=== PATIENT | female | born 1990 | race Caucasian/White ===

== ENCOUNTER 2021-07-13 11:32 | Outpatient (CLI) | payer OTHER, SELFPAY ==
[2021-07-13 19:46] LABS: Basophils Percent Auto 0.1 % (0.2-1.2); Eosinophils Absolute Auto 0.1 K/mm3 (0-0.3); Eosinophils Percent Auto 1.3 % (0-4.4); Hematocrit 36.2 % (37.0-47.0); Hemoglobin 11.6 g/dL (12.0-15.0); Immature Granulocyte Absolute 0.01 K/mm3 (0.00-0.031); Immature Granulocyte Percent A 0.1 % (0-0.5); Lymphocytes Absolute Auto 1.64 K/mm3 (0.9-3.2); Lymphocytes Percent Auto 23.6 % (18.3-44.2); Mean Corpuscular Hemoglobin 29.2 pg (26-34); Mean Corpuscular Volume 91.2 fl (80-100); Mean Platelet Volume 12.1 fl (7.4-10.4); Monocytes Absolute Auto 0.4 K/mm3 (0.1-0.6); Monocytes Percent Auto 5.9 % (2.6-8.5); Neutrophils Absolute Auto 4.8 K/mm3 (1.3-6.7); Platelet Count Result 188 k/mm3 (150-375); Red Blood Count 3.97 M/mm3 (4.2-5.4); Red Cell Distribution Width 13.3 % (11.5-14.5); White Blood Count 6.9 K/mm3 (4.5-10.0)
[2021-07-13 19:56] LABS: Glucose 1 Hour PP 50gm Dose 96 mg/dL
[2021-07-13 19:56] LABS: Add Urine Microscopic? NO; Appearance Urine Clear (Clear); Bilirubin Urine Negative (Negative); Blood Urine Negative (Negative); Color Urine Yellow (Yellow); Glucose Urine UA Negative (Negative); Ketones Urine Negative (Negative); Leukocyte Esterase Ur Negative LEU/UL (NEGATIVE); Nitrate Urine Negative (Negative); Protein Urine Negative (Negative); Specific Grav Ur 1.014 (1.001-1.035); Urobilinogen Urine Negative mg/dL (<2.0)
[2021-07-13 20:18] LABS: Vitamin D 25 Hydroxy 18.7 ng/mL
[2021-07-13 20:25] LABS: Thyroid Stimulating Hormone 0.984 uIU/mL (0.465-4.680)
[2021-07-13 20:32] LABS: Hepatitis B Surface Antigen Negative (Negative); Rubella IgG Antibody 13.1 IU/ML
[2021-07-13 20:43] LABS: HIV 1/2 Ab P24 Ag Result Negative (Negative); Hepatitis C Virus Antibody Negative (Negative)
[2021-07-14 15:09] LABS: Rapid Plasma Reagin Non-Reactive (NonReactive)
[2021-07-16 21:35] LABS: Hemoglobin 11.5 g/dL (11.7-15.5); MCH 29.6 pg (27.0-33.0); RDW 14.1 % (11.0-15.0); Red Blood Cell Count 3.89 Mill/uL (3.80-5.10)
== END 2021-07-13 11:33 | disposition home or self-care (01) ==
LOC: ANHBWCLAB 11:34
PROVIDERS: Visit Provider Obstetrics & Gynecology
DX: Z34.90 Encounter for supervision of normal pregnancy, unspecified, unspecified trimester (principal); E66.01 Morbid (severe) obesity due to excess calories; Z3A.00 Weeks of gestation of pregnancy not specified
CPT/HCPCS: 36415; 81003; 82306; 82947; 83021; 84443; 85025; 86592; 86703; 86762; 86787; 86803; 86850; 86900; 86901; 87086; 87088; 87340; G0432

== ENCOUNTER 2021-07-29 16:40 | Emergency (ER) | payer OTHER, SELFPAY ==
--- NOTE | 2021-07-29 16:52 | ED.URI ---
HPI - URI/Sore Throat General Stated Complaint: Ear Pain Time Seen by Provider: 07/29/21 16:52 Source: patient and RN notes reviewed History of Present Illness HPI Narrative: Patient is a 31-year-old female who presents the urgent care with complaints of left ear pain for the last 2 to 3 days. Patient states that she is taken Tylenol for the pain. Patient states that her main concern is getting tested for Covid today . Patient brought her entire family for Covid testing due to being at a recently. Denies of any fever, chills, nausea, vomiting. No other acute complaints. No acute distress noted. Patient aware of the plan of care. Some parts of this dictation were generated by voice recognition software and may contain typographical and/or grammatical inaccuracies. Related Data Home Medications Medication Instructions Recorded Confirmed docosahexaenoic acid 200 mg capsule mg PO 07/15/21 07/15/21 pyridoxine (vitamin B6) 25 mg 25 mg PO DAILY 07/15/21 07/15/21 tablet Allergies Allergy/AdvReac Type Severity Reaction Status Date / Time azithromycin Allergy Unknown RASH, Verified 07/29/21 17:27 DIARRHEA Penicillins Allergy Unknown RASH, Verified 07/29/21 17:27 DIARRHEA Review of Systems Review of Systems: CONSTITUTIONAL: Denies fever, chills, or sweats. EYES: Denies visual changes, redness, or discharge. ENT: Denies rhinorrhea, congestion. Reports a mild sore throat and left otalgia with use CARDIOVASCULAR: Denies chest pain, palpitations, or edema. RESPIRATORY: Denies cough or dyspnea. GASTROINTESTINAL: Denies abdominal pain, nausea, vomiting, or diarrhea. GENITOURINARY: Denies dysuria or hematuria. SKIN: Denies rash or itching. MUSCULOSKELETAL: Denies back pain, joint pain, or myalgia. NEUROLOGIC: Denies headache, numbness, or weakness. All other systems reviewed are negative, except as documented in HPI. [facility] Past Medical History Medical History Anxiety PCOS (polycystic ovarian syndrome) Surgical History Surgical History Previous section x2 Family History Family History (Reviewed 07/15/21 @ 12:28 by Junei Gutierrez [facility]) Mother Cancer Depression Anxiety Grandparent Cancer Diabetes mellitus Anxiety Depression Social History Social History (Reviewed 07/15/21 @ 12:28 by Junie Gutierrez [facility]) Smoking status: Never smoker Alcohol intake: never Substance use: never Comments At the time of my signature, I reviewed and agree with the nursing past medical, surgical, social, and family history. There is no relevant family history pertinent to the patient complaint. Exam Narrative: GENERAL: This is a well-nourished, well-developed patient, in no apparent distress. HEAD: normocephalic, atraumatic. EYES: PERRL. Sclera clear/white. Vision is grossly intact. EARS: External ears normal, mild edema and erythema with clear drainage noted to the left canal. Right auditory canal clear and without drainage, TMs normal without perforation. Hearing grossly intact. NOSE: External nose normal with no obvious nasal discharge, nares without redness, no rhinorrhea. THROAT: Mucous membranes moist, posterior pharynx clear. Mild postnasal drainage NECK: Neck supple CARDIOVASCULAR: Regular rate and rhythm without murmurs, gallops, or rubs. RESPIRATORY: Clear to auscultation. Breath sounds equal bilaterally. No wheezes, rales, or rhonchi. SKIN: warm, intact with no suspicious lesions or rash, good texture and turgor. NEURO: awake, alert, and oriented to person, place and time. There were no obvious focal neurologic abnormalities. EXTREMITIES: No clubbing, cyanosis, or edema. Course Vital Signs Vital signs: Vital Signs Temperature 98.6 F 07/29/21 17: Pulse Rate 79 07/29/21 17: Respiratory Rate 20 07/29/21 17:02 Blood Pressur
[2021-07-29 17:02] VITALS: BP 121/66; PULSE 79; RESP 20; TEMP 37; O2SAT 100
== END 2021-07-29 17:33 | disposition home or self-care (01) ==
PROVIDERS: Emergency Provider Nurse Practitioner Family; PCP Family Medicine
DX: H60.92 Unspecified otitis externa, left ear (principal); J02.9 Acute pharyngitis, unspecified; Z20.822 Contact with and (suspected) exposure to COVID-19; E28.2 Polycystic ovarian syndrome
CPT/HCPCS: 87081; 87880; 99213; G0463

== ENCOUNTER 2021-08-21 07:41 | Outpatient (CLI) | payer OTHER, SELFPAY ==
--- NOTE | ~2021-08-21 | US_ITS ---
EXAMINATION: US OB /maternal detail DATE: 08/21/2021 08:18 INDICATION: Second trimester anatomic survey TECHNIQUE: Real-time ultrasound of the pelvis was performed. COMPARISON: None. FINDINGS: The examination is limited by the patient's body habitus. There is a single living fetus in breech p resentation. The placenta is posterior. heart rate is 142 beats per minute (bpm). cardia c activity and movement are noted. The amniotic fluid index is subjectively normal. The heart is not well evaluated due to positioning and body habitus. The following anatom y was identified as normal: 3 vessel cord cord insertion kidneys urinary bladder stomach spine diaphragm ventricles cisterna magna cerebellum The following biometric data were obtained: Biparietal diameter (BPD): 4.1 cm; head circumference (HC): 15.9 cm; abdominal circumference (AC): 15 .7 cm; femur length (FL): 2.7 cm. The head circumference to abdominal circumference ratio is greater than two standard deviations below the mean. These measurements are otherwise concordant. Estimated weight is 303 g +/- 45 g, which correlates with the 48th percentile when 01/11/2022 is used as estimated date of delivery. As single measurements, these parameters are each equal to the following estimated gestational ages w ith ranges of +/- 2 standard deviations: BPD: 18 weeks 3 days +/- 1 weeks 5 days. HC: 18 weeks 5 days +/- 1 weeks 3 days. AC: 20 weeks 6 days +/- 2 weeks 0 days. FL: 18 weeks 4 days +/- 1 weeks 6 days. estimated gestational age based solely on measurements from this exam is 19 weeks 1 days +/- 1 weeks 2 days. IMPRESSION: 1. Single living fetus in breech presentation. 2. Estimated weight is 303 g +/- 45 g, which correlates with the 48th percentile when 01/11/2022 is used as estimated date of delivery. 3. Incomplete evaluation of the heart. Reviewed, dictated and finalized at location A. IMPRESSION: 1. Single living fetus in breech presentation. 2. Estimated weight is 303 g +/- 45 g, which correlates with the 48th per centile when 01/11/2022 is used as estimated date of delivery. 3. Incomplete evaluation of the heart.
== END 2021-08-21 07:42 | disposition home or self-care (01) ==
LOC: ANHIMG 07:47
PROVIDERS: PCP Family Medicine; Visit Provider Obstetrics & Gynecology
DX: Z36.0 Encounter for antenatal screening for chromosomal anomalies (principal); Z36.3 Encounter for antenatal screening for malformations; Z3A.19 19 weeks gestation of pregnancy
CPT/HCPCS: 76805

== ENCOUNTER 2021-09-24 09:10 | Outpatient (CLI) | payer OTHER, SELFPAY ==
--- NOTE | ~2021-09-24 | US_ITS ---
US OB limited 09/24/2021 09:53 Indication: Incomplete survey. Procedure: High-resolution Limited obstetrical ultrasound Comparison: 08/21/2021 Findings: There is a single living intrauterine in transverse presentation. heart rat e is 141 BPM. Placenta is posterior without previa. Amniotic fluid is subjectively normal. Limited ferrara rvey demonstrates a normal four-chamber heart. Impression: 1: Single living intrauterine in transverse presentation. 2: Normal four-chamber heart. Reviewed, dictated and finalized at location B. M OPERATOR Impression: 1: Single living intrauterine in transverse presentation. 2: Normal four-chamber heart.
== END 2021-09-24 09:11 | disposition home or self-care (01) ==
LOC: ANHIMG 09:12
PROVIDERS: PCP Family Medicine; Visit Provider Obstetrics & Gynecology
DX: Z36.2 Encounter for other antenatal screening follow-up (principal); Z3A.00 Weeks of gestation of pregnancy not specified
CPT/HCPCS: 76815

== ENCOUNTER 2021-10-20 13:35 | Emergency (ER) | payer OTHER, SELFPAY ==
[2021-10-20 14:20] VITALS: BP 149/59; PULSE 94; RESP 20; TEMP 36.6; O2SAT 99
--- NOTE | 2021-10-20 15:56 | ED.URI ---
HPI - URI/Sore Throat General Chief Complaint: Upper Respiratory Infection Stated Complaint: Cough/Sore Thorat/Ear Pain Time Seen by Provider: 10/20/21 15:56 Source: patient, RN notes reviewed and old records reviewed Mode of arrival: ambulatory Limitations: no limitations History of Present Illness HPI Narrative: 31-year-old female who presents to [facility] with complaints of 3 days of cough, sore throat, nasal congestion, and ear pain. Patient is 28 weeks , has not had any Covid or flu vaccine. Patient states that she had been on Amoxicillin about a month ago for ear infection which was prescribed by her OB doctor. Patient reports that she can take amoxicillin and Augmentin does not have type 2 IgE medication reaction to Penicillins. Patient states that she has been taking Benadryl and Flonase. Pertinent past history: tympanostony tubes Related Data Home Medications Medication Instructions Recorded Confirmed pyridoxine (vitamin B6) 25 mg 25 mg PO DAILY 07/15/21 10/20/21 tablet prenat.vits,roxi,fux-irun-xiwys 1 tablet PO DAILY 07/29/21 10/20/21 [ Vitamin] Allergies Allergy/AdvReac Type Severity Reaction Status Date / Time azithromycin Allergy Unknown RASH, Verified 10/20/21 15:48 DIARRHEA Penicillins Allergy Unknown RASH, Verified 10/20/21 15:48 DIARRHEA Review of Systems Review of Systems: CONSTITUTIONAL: Low grade fever, no chills, or sweats. EYES: Denies visual changes, redness, or discharge. ENT: positive for rhinorrhea, congestion, sore throat, or otalgia. CARDIOVASCULAR: Denies chest pain, palpitations, or edema. RESPIRATORY:Positive for cough denies dyspnea. GASTROINTESTINAL: Denies abdominal pain, nausea, vomiting, or diarrhea. GENITOURINARY: Denies dysuria or hematuria. SKIN: Denies rash or itching. MUSCULOSKELETAL: Denies back pain, joint pain, or myalgia. NEUROLOGIC: Positive for headache, no numbness, or weakness. PSYCHIATRIC: Positive for history of anxiety or depression. All systems reviewed & are unremarkable except as noted in HPI and below PMFSH Past Medical History Medical History (Updated 10/22/21 @ 09:02 by Francy Diaz NP) Anxiety Ear infection PCOS (polycystic ovarian syndrome) Surgical History Surgical History (Updated 10/22/21 @ 09:02 by Francy Diaz NP) History of placement of ear tubes Previous section x2 Family History Family History Mother Cancer Depression Anxiety Grandparent Cancer Diabetes mellitus Anxiety Depression Social History Social History Smoking status: Never smoker Alcohol intake: never Substance use: never Comments At time of signature, agree with nursing past medical, surgical, social and family history. There is no relevant family history pertinent to the presenting complaint Exam Narrative: GENERAL: Well-appearing, well-nourished,obese and is 28 weeks and in no acute distress. HEAD: Normocephalic, atraumatic. EYES: PERRLA and EOMI. ENT: Nares patent, clear rhinorrhea no epistaxis. Mucous membranes moist.TM's normal with ear tubes bilaterally, throat is red with no exudates or lesions, tonsila enlarged and red, some post nasal drainage present. NECK: Supple.lymphadenopathy CHEST: Clear to auscultation. No respiratory distress.cough with SAO2 99% on room air HEART: Regular rate and rhythm. No murmur heard. Normal peripheral pulses. ABDOMEN: Soft, nontender, nondistended, normal active bowel sounds. EXTREMITIES: Normal range of motion. No edema. SKIN: Warm, dry, no rash. NEURO: No focal deficits. Alert and oriented x3. Course Vital Signs Vital signs: Vital Signs Temperature 36.6 C 10/20/21 14:20 Pulse Rate 94 10/20/21 14:20 Respiratory Rate 20 10/20/21 14:20 Blood Pressure 149/59 H 10/20/21 14:20 Pulse Oximetry 99 10/20/21 14:20 Tempera
== END 2021-10-20 16:18 | disposition home or self-care (01) ==
PROVIDERS: Emergency Provider Registered Nurse; PCP Family Medicine
DX: J03.90 Acute tonsillitis, unspecified (principal); Z20.822 Contact with and (suspected) exposure to COVID-19; E28.2 Polycystic ovarian syndrome; F41.9 Anxiety disorder, unspecified
CPT/HCPCS: 87426; 87804; 99213; C9803; G0463

== ENCOUNTER 2021-11-18 16:56 | Outpatient (CLI) | payer OTHER, SELFPAY ==
[2021-11-18 17:20] VITALS: BP 119/77; PULSE 83
[2021-11-18 17:32] VITALS: BP 116/52; PULSE 89
[2021-11-18 17:48] VITALS: BP 116/52; PULSE 84
== END 2021-11-18 17:48 ==
LOC: ANHOBOP 11-19 12:10
PROVIDERS: PCP Family Medicine; Visit Provider Obstetrics & Gynecology
DX: O26.899 Other specified pregnancy related conditions, unspecified trimester (principal); M79.89 Other specified soft tissue disorders; R51.9 Headache, unspecified; Z3A.00 Weeks of gestation of pregnancy not specified
CPT/HCPCS: 59025

== ENCOUNTER 2022-01-04 06:30 | Inpatient (IN) | payer OTHER, SELFPAY ==
--- NOTE | 2021-12-31 16:09 | PM.IMHP ---
H&P: HPI History of Present Illness Date/Time: 12/31/21 16:09 at 39+0 with history of C section, coming for repeat C section and tubal ligation. Feeling normal movement. No leaking fluid, vaginal bleeding. Occasional contractions Chief Complaint: repeat C section, desires sterilization Review of Systems Review of Systems: All systems reviewed & are unremarkable except as noted in HPI and below PMFSH Past Medical History Medical History Anxiety Ear infection PCOS (polycystic ovarian syndrome) Surgical History Surgical History History of placement of ear tubes Previous section x2 Family History Family History Mother Anxiety Depression Cancer Grandparent Diabetes mellitus Anxiety Depression Cancer Social History Social History Smoking status: Never smoker Alcohol intake: never Substance use: never Spiritual care concerns: No Meds Home Medications and Allergies Home Medications Medication Instructions Recorded Confirmed Type prenat.vits,roxi,wve-nljy-xjwlb 1 tablet PO DAILY 07/29/21 12/30/21 History [ Vitamin] famotidine 20 mg tablet 20 mg PO Q12H #60 tablet 11/23/21 12/30/21 Rx escitalopram oxalate [Lexapro] 20 mg PO HS 12/26/21 12/30/21 History Allergies Allergy/AdvReac Type Severity Reaction Status Date / Time azithromycin Allergy Unknown RASH, Verified 12/30/21 12:10 DIARRHEA Penicillins Allergy Unknown RASH, Verified 12/30/21 12:10 DIARRHEA Exam Const: General: healthy appearing, no acute distress, alert and awake Resp: Auscultation: clear to auscultation bilaterally Cardio: Rate: regular rate Rhythm: regular rhythm GI: Inspection: non-distended GI Palp: Yes Soft to palpation and No Tenderness to palpation present (GI) Extrem: General: no calf tenderness Right lower extremity: edema Left lower extremity: edema Psych: Mental Status: mental status grossly normal Assessment and Plan Assessment and plan (1) Previous section: Code(s): Z98.891 - History of uterine scar from previous surgery Status: Acute Assessment and Plan: She signed consent after risks, benefits, complications, and alternatives discussed for repeat with bilateral tubal ligation. She signed IDND BTL consent 10/06/2021. She expressed understanding and agrees to proceed (2) Encounter for sterilization: Code(s): Z30.2 - Encounter for sterilization Status: Acute
[2022-01-04] VITALS (56 sets, daily range): BP systolic 60–154; BP diastolic 35–138; PULSE 63–109; RESP 15–20; TEMP 36.4–37; O2SAT 99–100; BMI 59.4
--- NOTE | 2022-01-04 06:58 | LDADM ---
This patient, Cara Rosa, was admitted to Labor/Delivery/Recovery 119 on 01/04/22 at 06:30. Plans for labor, pain management and were discussed with patient. Patient/family oriented to hospital policies and general routines including ID bracelet, bed and alarms, visiting hours, pain management, procedures, bathroom and other care routines, personal items, smoking policy, room service/diet and guest tray routines, security routines, and visiting hours. Patient/Family are encouraged to report perceived risks to care and to ask questions if they do not understand what they are told or what they should do. See OBIX for further documentation.
[2022-01-04] MEDS: LACTATED RINGERS 1,000 ML 125 ML IV CONT ×3 (07:19→11:39)
[2022-01-04 07:33] LABS: Basophils Percent Auto 0.2 % (0.2-1.2); Eosinophils Absolute Auto 0.1 K/mm3 (0-0.3); Eosinophils Percent Auto 0.6 % (0-4.4); Hematocrit 32.9 % (37.0-47.0); Hemoglobin 10.5 g/dL (12.0-15.0); Immature Granulocyte Absolute 0.06 K/mm3 (0.00-0.031); Immature Granulocyte Percent A 0.6 % (0-0.5); Lymphocytes Absolute Auto 2.16 K/mm3 (0.9-3.2); Mean Corpuscular HGB Conc 31.9 g/dl (32-36); Mean Corpuscular Hemoglobin 26.3 pg (26-34); Mean Corpuscular Volume 82.5 fl (80-100); Mean Platelet Volume 11.5 fl (7.4-10.4); Monocytes Absolute Auto 0.8 K/mm3 (0.1-0.6); Monocytes Percent Auto 7.7 % (2.6-8.5); Neutrophils Absolute Auto 7.2 K/mm3 (1.3-6.7); Neutrophils Percent Auto 69.9 % (45.5-73.1); Platelet Count Result 221 k/mm3 (150-375); Red Blood Count 3.99 M/mm3 (4.2-5.4); Red Cell Distribution Width 14.7 % (11.5-14.5); White Blood Count 10.3 K/mm3 (4.5-10.0)
--- NOTE | 2022-01-04 08:28 | WPDHPUPDATE1 ---
History and Physical Update Update Date/Time: 01/04/22 08:28 History and Physical has been reviewed, including an updated exam of the patient. There are NO changes in the patient's condition. Risks, benefits, and alternatives have been discussed and questions answered. Patient agrees to proceed with procedure.
--- NOTE | 2022-01-04 08:58 | WPDANESEPPF ---
Anes - Initial Pre Proc Eval Procedure: Operation Date: 01/04/22 09:00 Proposed Procedures p Repeat Section with Bilateral Tubal Ligation - Armida Harris MD Date/Time: 01/04/22 08:58 Surgeon: Armida Harris MD Pre Op Diagnosis: C/Section Patient Data Age: 31 Gender: F Height: 1.63 m Weight: 157 kg Last Vital Signs Pulse 98 01/04/22 07:01 BP 113/49 L 01/04/22 07:01 Allergies Allergy/AdvReac Type Severity Reaction Status Date / Time azithromycin Allergy Unknown RASH, Verified 12/30/21 12:10 DIARRHEA Penicillins Allergy Unknown RASH, Verified 12/30/21 12:10 DIARRHEA Home Medications Medication Instructions Recorded Confirmed Type prenat.vits,roxi,fkt-pmqb-rlxoa 1 tablet PO DAILY 07/29/21 01/04/22 History [ Vitamin] famotidine 20 mg tablet 20 mg PO Q12H #60 tablet 11/23/21 01/04/22 Rx escitalopram oxalate [Lexapro] 20 mg PO HS 12/26/21 01/04/22 History cefdinir 300 mg PO BID 01/04/22 01/04/22 History Laboratory Tests 01/04/22 01/04/22 06:53 06:53 WBC 10.3 K/mm3 H K/mm3 (4.5-10.0) RBC 3.99 M/mm3 L M/mm3 (4.2-5.4) Hgb 10.5 g/dL L g/dL (12.0-15.0) Hct 32.9 % L % (37.0-47.0) MCV 82.5 fl fl (80-100) MCH 26.3 pg pg (26-34) MCHC 31.9 g/dl L g/dl (32-36) RDW 14.7 % H % (11.5-14.5) Plt Count 221 k/mm3 k/mm3 (150-375) MPV 11.5 fl H fl (7.4-10.4) Immature Gran % (Auto) 0.6 % H % (0-0.5) Neut % (Auto) 69.9 % % (45.5-73.1) Lymph % (Auto) 21.0 % % (18.3-44.2) [place] % (Auto) 7.7 % % (2.6-8.5) Eos % (Auto) 0.6 % % (0-4.4) Baso % (Auto) 0.2 % % (0.2-1.2) Lymph # (Auto) 2.16 K/mm3 K/mm3 (0.9-3.2) [place] # (Auto) 0.8 K/mm3 H K/mm3 (0.1-0.6) Eos # (Auto) 0.1 K/mm3 K/mm3 (0-0.3) Baso # (Auto) 0.0 K/mm3 K/mm3 (0.0-0.1) Abs Immat Gran (auto) 0.06 K/mm3 H K/mm3 (0.00-0.031) Absolute Neuts (auto) 7.2 K/mm3 H K/mm3 (1.3-6.7) Absolute Nucleated RBC 0.0 K/mm3 K/mm3 (0.0-0.012) Nucleated RBC % 0.0 % % (0.0-0.2) RPR Pending Patient hx anesthesia problems: none Family hx anesthesia problems: none Results Review: All pre-operative results and documents have been reviewed as part of the pre-operative evaluation. [facility] Past Medical History Medical History (Updated 01/04/22 @ 08:58 by Jose Encinas MD) Anxiety Ear infection Morbid obesity PCOS (polycystic ovarian syndrome) Surgical History Surgical History History of placement of ear tubes Previous section x2 Family History Family History Mother Anxiety Depression Cancer Grandparent Diabetes mellitus Anxiety Depression Cancer Social History Social History Smoking status: Never smoker Alcohol intake: never Substance use: never Spiritual care concerns: No Anes - Eval Final PreProcedure Day of Procedure 01/04/22 08:58 Patient weight: super morbidly obese Heart: regular rate and rhythm Lungs: clear to auscultation Airway: Mallampati scale class II Neurological: alert and oriented Last oral intake: >/= 8 hours ASA classification: III Emergent: no Anesthetic plan: proceed Anesthesia type and monitoring: regional spinal and standard monitoring Results Review: All pre-operative results and documents have been reviewed as part of the pre-operative evaluation. Informed Consent: The patient's anesthetic plan and its attendant risks and benefits were discussed with the patient/family/POA. Questions were solicited and answers provided to the satisfaction of the patient/family/POA.
--- NOTE | 2022-01-04 09:03 | W.PM.PROC2 ---
Procedure Note - Detailed Date of Procedure 01/04/22 Pre-op Diagnosis Prior C/Section X 2, desires sterilization Post-op Diagnosis Same Procedure Performed Repeat LTCS + BTL Surgeon Armida Harris MD Anesthesia Spinal Indications 39 weeks gestation, prior C section X 2 Findings Male , cephalic; 10# 4oz; Apgars 8/8; normal uterus, tubes, and ovaries Description of Procedure She was taken to the operating room where spinal anesthesia was obtained and found to be adequate. She was prepared and draped in the normal sterile fashion in the dorsal lip supine position with a leftward tilt. A Pfannenstiel skin incision was made over her prior incision with the scalpel and extended to the underlying layer of fascia with the scalpel. The fascia was incised in the midline with a scalpel and extended laterally with the Vaz scissors. The underlying rectus muscles were dissected off bluntly and sharply. The rectus muscles were in the midline. The peritoneum was entered sharply and extended inferiorly and superiorly with good visualization of the bladder. The bladder blade was inserted. The vesicouterine peritoneum was tented up and entered sharp with Metzenbaum scissors and extended laterally. The bladder flap was created sharply. The bladder blade was reinserted. The lower uterine segment was incised in a transverse fashion with the scalpel. The incision was digitally stretched in a cephalocaudal direction. Due to the thickness of the lower uterine segment, the incision was then extended further using the bandage scissors. The membranes were ruptured with clear fluid noted. The 's head was delivered using help of the kiwi vacuum. One application and 1 pull was made to deliver the head. There was a loose nuchal cord that was reduced easily. The shoulders and body were delivered easily. The cord was clamped x2 and cut. The was passed to the awaiting nurse. Cord gas and cord blood was obtained. The placenta was manually extracted. The uterus was exteriorized and cleared of all clots and debris. The uterine incision was closed using 0 Vicryl in a running locked fashion 2 layers were placed due to the thickness of the uterus. Attention was then turned to the right fallopian tube. A defect was made in the meso salpinx in the mid isthmic portion. Two free ties of 0 plain gut were placed, and the intervening segment of tube was excised using the Metzenbaum scissors. Excellent hemostasis was visualized. The same procedure was performed on the left fallopian tube. Attention was then turned back to the uterine incision. There were couple bleeding points, which were easily controlled using 0 Vicryl [id number] sutures. The uterus was returned to the abdomen. The gutters were cleared of all clots and debris. The uterine incision was reinspected and found to be hemostatic. The rectus muscles were inspected. Any bleeding points were cauterized. The fascia was then closed using 0 Vicryl in a running fashion. The subcutaneous tissue was irrigated. Any bleeding points were cauterized. The skin was closed using Insorb absorbable martha. She tolerated the procedure well. Sponge, lap, needle, and instrument counts were correct x2. She was taken to the recovery area in stable condition. Estimated Blood Loss 385 Drains Yes (Meyer) Packing No Pathology None sent Complications No immediate complications Condition Stable Disposition Floor
[2022-01-04] MEDS: OXYTOCIN 30 UNITS/NS 500 ML 30 UNITS/500 ML BAG 125 UNITS IV CONT (11:37)
[2022-01-04] MEDS: fentaNYL CITRATE INJ (*CRX) 100 MCG/2 ML VIAL 25 MCG IV PUSH (11:51)
--- NOTE | 2022-01-04 13:53 | OBPPTRN ---
1320 Patient transferred to post room #285 via stretcher. Support person present. Oriented to unit, room, information board, rooming in, admission packet and security measures. Patient verbalizes understanding.
[2022-01-04] MEDS: diphenhydrAMINE HCl INJ 50 MG/ML VIAL 25 MG IV PUSH (13:59)
[2022-01-04] MEDS: CEFDINIR 300 MG CAPSULE PO ×2 (14:15→20:19)
[2022-01-04] MEDS: DEXTROSE 5%/0.45% SOD CHL 1,000 ML 125 ML IV CONT (16:47)
[2022-01-04] MEDS: DOCUSATE SODIUM 100 MG CAPSULE PO (18:49)
[2022-01-04] MEDS: POLYSACCHARIDE IRON COMPLEX 150 MG CAPSULE PO (18:49)
[2022-01-04] MEDS: HYDROcodone/acetaminophen (*CRX) 10-325 MG TABLET 1 TAB PO (18:49)
[2022-01-04] MEDS: IBUPROFEN 600 MG TABLET PO (18:50)
[2022-01-04] MEDS: ESCITALOPRAM OXALATE 10 MG TABLET 20 MG PO (20:19)
[2022-01-04] MEDS: FAMOTIDINE 20 MG TABLET PO (20:19)
[2022-01-05] MEDS: IBUPROFEN 600 MG TABLET PO ×3 (01:24→16:33)
[2022-01-05] MEDS: HYDROcodone/acetaminophen (*CRX) 10-325 MG TABLET 1 TAB PO ×4 (01:24→23:01)
[2022-01-05 04:45] VITALS: BP 120/77; PULSE 69; RESP 18; TEMP 36.8
[2022-01-05 05:23] LABS: Basophils Percent Auto 0.2 % (0.2-1.2); Eosinophils Absolute Auto 0.1 K/mm3 (0-0.3); Eosinophils Percent Auto 1.4 % (0-4.4); Hematocrit 32.5 % (37.0-47.0); Hemoglobin 10.1 g/dL (12.0-15.0); Immature Granulocyte Absolute 0.02 K/mm3 (0.00-0.031); Immature Granulocyte Percent A 0.2 % (0-0.5); Lymphocytes Absolute Auto 2.02 K/mm3 (0.9-3.2); Lymphocytes Percent Auto 20.3 % (18.3-44.2); Mean Corpuscular HGB Conc 31.1 g/dl (32-36); Mean Corpuscular Hemoglobin 27.1 pg (26-34); Mean Corpuscular Volume 87.1 fl (80-100); Mean Platelet Volume 10.8 fl (7.4-10.4); Monocytes Absolute Auto 0.8 K/mm3 (0.1-0.6); Monocytes Percent Auto 7.9 % (2.6-8.5); Platelet Count Result 183 k/mm3 (150-375); Red Blood Count 3.73 M/mm3 (4.2-5.4); Red Cell Distribution Width 14.7 % (11.5-14.5); White Blood Count 9.9 K/mm3 (4.5-10.0)
[2022-01-05] MEDS: NALBUPHINE HCL INJ 10 MG/ML AMPUL 2 MG IV PUSH (05:56)
--- NOTE | 2022-01-05 08:09 | P.PNOB_ITS ---
OB - PN: Subj Subjective Date/time seen: 01/05/22 08:09 Patient comments: no complaints, pain well controlled, incisional pain, tolerating diet, flatus present and other (Lochia similar to menses) baby status: doing well OB - PN: Obj Data Labs CBC & Chem 7: 01/05/22 05:14 Labs: Laboratory Results - last 24 hr 01/04/22 01/05/22 06:53 05:14 WBC 9.9 RBC 3.73 L Hgb 10.1 L Hct 32.5 L MCV 87.1 D MCH 27.1 MCHC 31.1 L RDW 14.7 H Plt Count 183 MPV 10.8 H Immature Gran % (Auto) 0.2 Neut % (Auto) 70.0 Lymph % (Auto) 20.3 [place] % (Auto) 7.9 Eos % (Auto) 1.4 Baso % (Auto) 0.2 Lymph # (Auto) 2.02 [place] # (Auto) 0.8 H Eos # (Auto) 0.1 Baso # (Auto) 0.0 Abs Immat Gran (auto) 0.02 Absolute Neuts (auto) 7.0 H Absolute Nucleated RBC 0.0 Nucleated RBC % 0.0 Blood Type A Positive Antibody Screen Negative OB - PN A/P Plan day: 1 (s/p C section, doing well) Plan: routine care Comments: May leave on pass today to see her baby who was transferred Time Spent With Patient Time: Total time spent is greater than 50% in coordination of care (as documented) at patient's floor/unit and/or counseling patient: Time with patient: less than 15 minutes Exam Const: General: no acute distress Resp: Auscultation: clear to auscultation bilaterally Cardio: Rate: regular rate Rhythm: regular rhythm GI: Inspection: non-distended, incision (Intact without erythema, drainage, or induration) and other (Fundus firm and nontender at umbilicus) GI Palp: Yes abdominal tenderness (appropriate ) and Yes Soft to palpation Extrem: General: no edema
[2022-01-05 08:15] VITALS: BP 126/49; PULSE 86; RESP 18; TEMP 36.7; O2SAT 99
[2022-01-05 08:52] LABS: Rapid Plasma Reagin Non-Reactive (NonReactive)
[2022-01-05] MEDS: DOCUSATE SODIUM 100 MG CAPSULE PO ×2 (09:15→16:35)
[2022-01-05] MEDS: FAMOTIDINE 20 MG TABLET PO ×2 (09:15→19:31)
[2022-01-05] MEDS: CEFDINIR 300 MG CAPSULE PO ×2 (09:16→19:31)
--- NOTE | 2022-01-05 10:54 | WPDANLDPN2 ---
Anes-Prog Note L&D Date/Time: 01/05/22 10:54 Comfortable throughout: section Neuraxial method: spinal Epidural/Spinal procedure site: clean & non-tender Neuro status: Neuro function grossly intact. Cardiovascular status: normal Respiratory status: normal Airway patency: baseline Mental status: baseline Post-Op hydration status: normal Vital Signs: Last Vital Signs Temp 36.7 C 01/05/22 08:15 Pulse 86 01/05/22 08:15 Resp 18 01/05/22 08:15 BP 126/49 L 01/05/22 08:15 Pulse Ox 99 01/05/22 08:15 Pain score (VAS): 2/10 I/O: Intake & Output 01/04/22 01/05/22 01/05/22 23:59 07:59 15:59 Intake Total 1090 750 Output Total 1300 1500 350 Balance -210 -750 -350 Post-procedural complaints: none Patient feedback: Patient satisfied with anesthetic care.
--- NOTE | 2022-01-05 10:54 | WPDANLDNPN2 ---
Anes-Prog Note L&D-Neuraxial Date/Time: 01/05/22 10:54 Neuraxial medications: intrathecal PF morphine Opiod-related complaints: none Patient feedback: Patient satisfied with post-operative pain management.
[2022-01-05 16:26] VITALS: BP 123/72; PULSE 96; RESP 18; TEMP 36.3; O2SAT 100
[2022-01-05 19:20] VITALS: BP 125/78; PULSE 90; RESP 18; TEMP 37
[2022-01-05] MEDS: ESCITALOPRAM OXALATE 10 MG TABLET 20 MG PO (19:31)
--- NOTE | 2022-01-05 19:44 | PC.NURSE ---
0930 left to go on 4-6 hour pass to [facility] to visit . [address].
--- NOTE | 2022-01-05 19:45 | PC.NURSE ---
1600 returned from going on the pass.
[2022-01-06] MEDS: IBUPROFEN 600 MG TABLET PO ×2 (04:46→11:34)
[2022-01-06] MEDS: HYDROcodone/acetaminophen (*CRX) 10-325 MG TABLET 1 TAB PO (04:47)
[2022-01-06 08:00] VITALS: PULSE 96; RESP 18; O2SAT 100
--- NOTE | 2022-01-06 08:25 | PM.OBPNVD ---
OB - PN: Subj Subjective Date/time seen: 01/06/22 08:25 Patient comments: no complaints, pain well controlled, tolerating diet, flatus present and other (Ambulating and voiding without problems. Lochia similar to menses) baby status: doing well OB - PN: Obj Data Labs CBC & Chem 7: 01/05/22 05:14 Labs: Laboratory Results - last 24 hr 01/04/22 06:53 RPR Non-reactive OB - PN A/P Plan day: 2 (s/p C section, doing well) Plan: routine care and discharge home (Follow up in 1 week) Time Spent With Patient Time: Total time spent is greater than 50% in coordination of care (as documented) at patient's floor/unit and/or counseling patient: Time with patient: less than 15 minutes Exam Const: General: no acute distress Resp: Auscultation: clear to auscultation bilaterally Cardio: Rate: regular rate Rhythm: regular rhythm GI: Inspection: non-distended, incision (Intact without erythema, drainage, or induration) and other (Fundus firm and nontender below umbilicus) GI Palp: Yes abdominal tenderness (appropriate) and Yes Soft to palpation Extrem: General: no edema
--- NOTE | 2022-01-06 08:25 | PM.OBDSVD ---
DS: Admitting Diagnosis Discharge Date 01/06/2022 Admitting Diagnosis Prior C/S X 2, desires sterilization DS: Discharge Diagnosis Discharge Diagnosis (1) Previous section: Code(s): Z98.891 - History of uterine scar from previous surgery Status: Acute (2) Encounter for sterilization: Code(s): Z30.2 - Encounter for sterilization Status: Acute OB - DS: Summary OB Procedures : None OB Procedures Intrapartum: low cervical, transverse and Tubal ligation OB Procedures: : None Peripartum Data Delivery Method: Section Procedures: Procedures Operation Date: 01/04/22 09:00 Actual Procedure Side Surgeon p Repeat Section with Bilateral Tubal Ligation Armida Harris MD complications: none Status at Discharge Functional status at discharge: independent ambulation Overall status at discharge: patient is progressing back to baseline Time Spent with Patient Time attestation: Total time spent providing and/or coordinating discharge services: Time spent: Less than 30 minutes DS: Data Data Completed and Pending Completed studies during hospitalization: Pending at discharge 01/04/22 10:16 Surgical [PTH] Routine Labs on day of discharge: Labs from last 24 hours 01/04/22 06:53 RPR Non-reactive Discharge Plan Discharge Attending physician on discharge: Armida Harris Discharging Clinician: Armida Harris Patient Disposition: Home, Self-Care Activity: may shower and pelvic rest Diet: as tolerated Wound Care Instructions: incision open to air Patient Instructions: Antibiotic Form Stand Alone Forms: General Discharge Information Follow-up/Referrals: Armida Harris MD [Physician] - 1 Week Discharge Medications: New hydrocodone-acetaminophen 5-325 mg Tablet 1 tablet PO Q4H PRN (Reason: Moderate Pain (4-6)) Qty: 20 RF: 0 ibuprofen 600 mg Tablet 600 mg PO Q6H PRN (Reason: Cramping) Qty: 60 RF: 0 Continued Vitamin Tablet 1 tablet PO DAILY RF: 0 escitalopram oxalate [Lexapro] 20 mg tablet 20 mg PO HS RF: 0 cefdinir 300 mg capsule 300 mg PO BID RF: 0 famotidine 20 mg tablet 20 mg PO Q12H Qty: 60 RF: 2 Date of admission: 01/04/22 06:30 Primary Care Provider: Hill,Horacio B. Admitting Provider: Armida Harris Attending physician on admission: Armida Harris Condition: Stable
[2022-01-06 08:55] VITALS: BP 149/87; PULSE 96; RESP 18; TEMP 37.1; O2SAT 100
[2022-01-06] MEDS: FAMOTIDINE 20 MG TABLET PO (08:56)
[2022-01-06] MEDS: CEFDINIR 300 MG CAPSULE PO (08:56)
[2022-01-06] MEDS: DOCUSATE SODIUM 100 MG CAPSULE PO (08:56)
== END 2022-01-06 11:40 | disposition home or self-care (01) | DRG 540 ==
LOC: ANHLDR 06:33 → ANHOB2 13:43
PROVIDERS: Admitting Provider Obstetrics & Gynecology; PCP Family Medicine; Visit Provider Obstetrics & Gynecology
PROC: 10D00Z1 Extraction of Products of Conception, Low, Open Approach (ICD-10-PCS; CPT 59514; principal; 2022-01-04 09:00)
DX: O34.211 Maternal care for low transverse scar from previous cesarean delivery (principal); Z37.0 Single live birth; Z3A.39 39 weeks gestation of pregnancy; O99.824 Streptococcus B carrier state complicating childbirth; Z30.2 Encounter for sterilization
CPT/HCPCS: 36415; 85025; 86592; 86850; 86900; 86901; 88302; A9270; J0131; J1200; J2274; J2300; J2370; J2405; J2590; J3010; J3370; J7120

== ENCOUNTER 2022-08-13 12:22 | Emergency (ER) | payer OTHER, SELFPAY ==
[2022-08-13 12:35] VITALS: BP 116/81; PULSE 74; RESP 18; TEMP 37.5; O2SAT 99
[2022-08-13 12:43] VITALS: BP 116/81; PULSE 74; RESP 18; TEMP 37.5; O2SAT 99
--- NOTE | 2022-08-13 12:54 | ED.EAR ---
HPI - Ear Problem General Chief complaint: Ear Stated complaint: ears Time Seen by Provider: 08/13/22 12:50 Source: patient, RN notes reviewed and old records reviewed Mode of arrival: ambulatory Limitations: no limitations History of Present Illness HPI Narrative: 32-year-old female who presents to [facility] care with complaints of bilateral ear pain with left ear greater than right. Patient does have bilateral ear tubes in place with long history of ear problems. Patient states pain to left ear and also decreased hearing for the past 3 days with some bloody drainage from her left ear reported. MD Complaint: ear pain, ear discharge and decreased hearing Location: bilateral (left greater than right) Duration: constant Associated symptoms ear: decreased hearing Related Data Home Medications Medication Instructions Recorded Confirmed escitalopram oxalate 20 mg tablet 20 mg PO HS 12/26/21 08/13/22 (Lexapro) bupropion HCl 150 mg 24 hr tablet, 150 mg PO DAILY 08/13/22 08/13/22 extended release topiramate 100 mg tablet 100 mg DAILY 08/13/22 08/13/22 Allergies Allergy/AdvReac Type Severity Reaction Status Date / Time azithromycin Allergy Unknown RASH, Verified 08/13/22 12:41 DIARRHEA Penicillins Allergy Unknown RASH, Verified 08/13/22 12:41 DIARRHEA Review of Systems Review of Systems: CONSTITUTIONAL:Reports malaise, chills, sweats, or fever. EYES: Denies visual changes, redness, or discharge. ENT: Reports rhinorrhea, congestion, sinus pain, bilateral otalgia no sore throat. CARDIOVASCULAR: Denies chest pain, palpitations, or edema. RESPIRATORY: no cough.? Denies dyspnea. GASTROINTESTINAL: Denies abdominal pain, nausea, vomiting, diarrhea SKIN: Denies rash or itching. MUSCULOSKELETAL: Denies myalgia. NEUROLOGIC: Denies headache. All systems reviewed & are unremarkable except as noted in HPI and below PMFSH Past Medical History Medical History Anxiety Ear infection Morbid obesity PCOS (polycystic ovarian syndrome) Surgical History Surgical History History of placement of ear tubes Previous section x2 Family History Family History Mother Anxiety Depression Cancer Grandparent Diabetes mellitus Anxiety Depression Cancer Social History Social History Smoking status: Never smoker Alcohol intake: never Substance use: never Spiritual care concerns: No Comments At time of signature, agree with nursing past medical, surgical, social and family history. There is no relevant family history pertinent to the presenting complaint Exam Narrative: GENERAL: Well-appearing, well-nourished, obesity and in no acute distress. HEAD: Normocephalic EYES: PERRLA, conjunctivae clear ENT: Nares clear, turbinates edematous and erythematous, clear discharge. Mucous membranes moist.Right TM pearly guaman with dull light reflex ear tub intact no drainage, Left ear with redness TM with tube in place some old blood noted in ear canal no tragal tenderness. Oropharynx erythematous without lesions. Tonsils not enlarged and without exudate, no drooling, no hoarseness, no trismus, uvula midline. NECK: Supple. No lymphadenopathy CHEST: Clear to auscultation, breath sounds equal. No wheezing, rhonchi, rales, or stridor. No respiratory distress, speaks in full sentences. HEART: Regular rate and rhythm. No murmur heard. SKIN: Warm, dry, no rash. NEURO: Alert and oriented x3. PSYCH: Normal mood and affect Course Course Emergency Course: Patient is aware of diagnosis, understands and agrees to treatment plan.? Anticipatory guidance given.? Patient agrees to follow-up as directed and is aware of reasons to seek care at the emergency departmen
== END 2022-08-13 13:16 | disposition home or self-care (01) ==
PROVIDERS: Emergency Provider Registered Nurse; PCP Family Medicine
DX: H66.92 Otitis media, unspecified, left ear (principal); E28.2 Polycystic ovarian syndrome; E66.01 Morbid (severe) obesity due to excess calories; Z68.43 Body mass index [BMI] 50.0-59.9, adult; F41.9 Anxiety disorder, unspecified
CPT/HCPCS: 99213; G0463

== ENCOUNTER 2022-09-09 12:20 | Emergency (ER) | payer OTHER, SELFPAY ==
[2022-09-09 12:25] VITALS: BP 126/56; PULSE 108; RESP 16; TEMP 37.2; O2SAT 100
--- NOTE | 2022-09-09 12:59 | ED.URI ---
HPI - URI/Sore Throat General Chief Complaint: Upper Respiratory Infection Stated Complaint: ears and throat Time Seen by Provider: 09/09/22 12:59 Source: patient Mode of arrival: ambulatory Limitations: no limitations History of Present Illness HPI Narrative: 32-year-old female presented for complaints of bilateral ear pain. Left ear pain worse than right with yellow or bloody drainage.? Patient does have bilateral ear tubes in place with long history of ear problems.? Patient endorses decreased hearing for the past 2 weeks. Patient was treated with cefdinir and ofloxacin drops on 08/13/2022; reports med compliance but no significant improvement in symptoms. Related Data Home Medications Medication Instructions Recorded Confirmed escitalopram oxalate 20 mg tablet 20 mg PO HS 12/26/21 09/09/22 (Lexapro) bupropion HCl 150 mg 24 hr tablet, 150 mg PO DAILY 08/13/22 09/09/22 extended release topiramate 100 mg tablet 100 mg DAILY 08/13/22 09/09/22 Allergies Allergy/AdvReac Type Severity Reaction Status Date / Time azithromycin Allergy Unknown RASH, Verified 09/09/22 12:55 DIARRHEA Penicillins Allergy Unknown RASH, Verified 09/09/22 12:55 DIARRHEA Review of Systems Review of Systems: CONSTITUTIONAL: Denies malaise, chills, or fever. EYES: Denies visual changes, redness, or discharge. ENT: Denies rhinorrhea, congestion, sinus pain, and sore throat. Reports ear pain CARDIOVASCULAR: Denies chest pain, palpitations, or edema. RESPIRATORY: Denies dyspnea. GASTROINTESTINAL: Denies abdominal pain, nausea, vomiting, diarrhea SKIN: Denies rash or itching. MUSCULOSKELETAL: Denies myalgia. NEUROLOGIC: Denies headache. All systems reviewed & are unremarkable except as noted in HPI and below PMFSH Past Medical History Medical History Anxiety Ear infection Morbid obesity PCOS (polycystic ovarian syndrome) Surgical History Surgical History History of placement of ear tubes Previous section x2 Family History Family History Mother Anxiety Depression Cancer Grandparent Diabetes mellitus Anxiety Depression Cancer Social History Social History Smoking status: Never smoker Alcohol intake: never Substance use: never Spiritual care concerns: No Comments At time of signature, agree with nursing past medical, surgical, social and family history. There is no relevant family history pertinent to the presenting complaint Exam Narrative: GENERAL: Well-appearing EYES: PERRLA, conjunctivae clear ENT: Nares clear. Mucous membranes moist. Bilateral TMs with Tubes in place. Canals erythematous and tender with moderate amount of purulent drainage; Left TM with about 25 percent of TM visible. Bilateral tragal tenderness. Oropharynx not erythematous without lesions. Tonsils enlarged 1+and without exudate, no drooling, no hoarseness, no trismus, uvula midline. NECK: Supple. No lymphadenopathy CHEST: Clear to auscultation, breath sounds equal. No wheezing, rhonchi, rales, or stridor. No respiratory distress, speaks in full sentences. HEART: Regular rate and rhythm. No murmur heard. SKIN: Warm, dry, no rash. Course Course Emergency Course: Patient is aware of diagnosis, understands and agrees to treatment plan. Anticipatory guidance given. Patient agrees to follow-up as directed and is aware of reasons to seek care at the emergency department. Portions of this record may have been created with voice recognition software Level of Care: Express Care Visit Vital Signs Vital signs: Vital Signs Temperature 98.9 F 09/09/22 12:25 Pulse Rate 108 H 09/09/22 12:25 Respiratory Rate 16 09/09/22 12:25 Blood Pressure 126/56 L 09/09/22 12:25 Pulse Oximetry
== END 2022-09-09 13:07 | disposition home or self-care (01) ==
PROVIDERS: Emergency Provider Nurse Practitioner Family; PCP Family Medicine
DX: H60.93 Unspecified otitis externa, bilateral (principal); F41.9 Anxiety disorder, unspecified; E66.01 Morbid (severe) obesity due to excess calories; Z68.43 Body mass index [BMI] 50.0-59.9, adult; E28.2 Polycystic ovarian syndrome
CPT/HCPCS: 99213; G0463

== ENCOUNTER 2023-01-10 13:03 | Outpatient (CLI) | payer OTHER, SELFPAY ==
[2023-01-10 19:56] LABS: Alanine Aminotransferase 28 U/L (6-35); Albumin Level 4.1 g/dL (3.5-5.1); Alkaline Phosphatase 86 U/L (38-126); Anion Gap 6 mmol/L (8-16); Aspartate Amino Transferase 32 U/L (14-36); Bilirubin,Total 0.4 mg/dL (0.2-1.3); Blood Urea Nitrogen 8 mg/dL (7-17); Calcium 9.1 mg/dL (8.4-10.2); Carbon Dioxide 26 mmol/L (22-30); Chloride 106 mmol/L (98-107); Cholesterol 175 mg/dL (0-200); Estimated Glomerular Filt Rate > 60; Glucose 87 mg/dL (65-110); HDL Direct 39 mg/dL; Potassium 4.3 mmol/L (3.4-5.0); Sodium 138 mmol/L (137-145); Triglycerides 98 mg/dL (<150)
[2023-01-10 19:58] LABS: Basophils Percent Auto 0.2 % (0.2-1.2); Eosinophils Absolute Auto 0.1 K/mm3 (0-0.3); Eosinophils Percent Auto 0.9 % (0-4.4); Hematocrit 40.9 % (37.0-47.0); Hemoglobin 12.9 g/dL (12.0-15.0); Immature Granulocyte Absolute 0.03 K/mm3 (0.00-0.031); Immature Granulocyte Percent A 0.3 % (0-0.5); Lymphocytes Absolute Auto 2.64 K/mm3 (0.9-3.2); Lymphocytes Percent Auto 29.6 % (18.3-44.2); Mean Corpuscular HGB Conc 31.5 g/dl (32-36); Mean Corpuscular Hemoglobin 27.3 pg (26-34); Mean Corpuscular Volume 86.7 fl (80-100); Mean Platelet Volume 11.5 fl (7.4-10.4); Monocytes Absolute Auto 0.5 K/mm3 (0.1-0.6); Monocytes Percent Auto 5.1 % (2.6-8.5); Neutrophils Absolute Auto 5.7 K/mm3 (1.3-6.7); Neutrophils Percent Auto 63.9 % (45.5-73.1); Platelet Count Result 324 k/mm3 (150-375); Red Blood Count 4.72 M/mm3 (4.2-5.4); Red Cell Distribution Width 13.3 % (11.5-14.5); White Blood Count 8.9 K/mm3 (4.5-10.0)
[2023-01-10 20:07] LABS: LDL Cholesterol Direct 113 mg/dL
[2023-01-10 20:30] LABS: Hepatitis B Surface Antigen Negative (Negative)
[2023-01-10 20:32] LABS: Iron 42 ug/dL (37-170)
[2023-01-10 20:36] LABS: HAV RESULT Negative (Negative); Hepatitis B Core IgM Result Negative (Negative)
[2023-01-10 20:42] LABS: Percent Iron Saturation 11 % (20-50)
[2023-01-10 20:47] LABS: Hepatitis C Virus Antibody Negative (Negative)
[2023-01-10 21:26] LABS: Hemoglobin A1C 5.4 % (<5.7)
== END 2023-01-10 13:04 | disposition home or self-care (01) ==
LOC: ANHBWCLAB 13:08
PROVIDERS: PCP Family Medicine; Visit Provider Family Medicine
DX: Z00.00 Encounter for general adult medical examination without abnormal findings (principal)
CPT/HCPCS: 36415; 80053; 80061; 80074; 82248; 82607; 82728; 83036; 83540; 83550; 84443; 85025

== ENCOUNTER 2023-08-22 12:26 | Outpatient (CLI) | payer OTHER, SELFPAY ==
--- NOTE | ~2023-08-22 | XR_ITS ---
XR lumbar spine 2-3V DATE: 08/22/2023 12:43 INDICATION: Chronic right low abdominal pain radiating to back TECHNIQUE: AP, lateral, coned lateral lumbosacral COMPARISON: None FINDINGS: Mild thoracolumbar levoscoliosis. Normal alignment of the lumbar spine. No fracture or bone destruction is evident. The lumbar pedicles are intact. Lumbar and lumbosacral interspaces are well preserved. The sacroiliac joints appear unremarkable. IMPRESSION: Mild thoracolumbar levoscoliosis Reviewed, dictated and finalized at location B.
--- NOTE | ~2023-08-22 | XR_ITS ---
XR abdomen/kub 1V DATE: 08/22/2023 12:43 INDICATION: Chronic right low abdominal pain radiating to back TECHNIQUE: 2 upright views of abdomen COMPARISON: 12/29/2018 CT abdomen pelvis FINDINGS: There is a prominent amount of fecal material in the right colon. No bowel obstruction is e vident. The psoas shadows appear intact. No visceromegaly is noted. No intraperitoneal free air is detected. The lung bases appear essentially clear. Included skeletal structures appear unremarkable IMPRESSION: Nonspecific examination Reviewed, dictated and finalized at Location [facility]. Reviewed, dictated and finalized at location B. IMPRESSION: Nonspecific examination
[2023-08-22 20:26] LABS: Alanine Aminotransferase 22 U/L (6-35); Albumin Level 4.2 g/dL (3.5-5.1); Alkaline Phosphatase 69 U/L (38-126); Anion Gap 6 mmol/L (8-16); Aspartate Amino Transferase 46 U/L (14-36); Bilirubin,Total 0.4 mg/dL (0.2-1.3); Blood Urea Nitrogen 10 mg/dL (7-17); Calcium 9.3 mg/dL (8.4-10.2); Carbon Dioxide 29 mmol/L (22-30); Chloride 104 mmol/L (98-107); Estimated Glomerular Filt Rate > 60; Glucose 93 mg/dL (65-110); Potassium 4.2 mmol/L (3.4-5.0); Sodium 139 mmol/L (137-145)
[2023-08-22 20:35] LABS: Appearance Urine Cloudy (Clear); Bacteria Urine 2+ /hpf; Bilirubin Urine Negative (Negative); Blood Urine 3+ (Negative); Color Urine Yellow (Yellow); Glucose Urine UA Negative (Negative); Ketones Urine Negative (Negative); Leukocyte Esterase Ur 2+ LEU/UL (NEGATIVE); Nitrate Urine Negative (Negative); Non Pathogenic Casts 0-2; Protein Urine 2+ mg/dL (Negative); Specific Grav Ur 1.021 (1.001-1.035); Squamous Epithelial Cell Urine Moderate /hpf (Few)
[2023-08-22 20:39] LABS: Add Urine Microscopic? YES
[2023-08-22 20:40] LABS: Free T4 Free Thyroxine 0.94 ng/mL (0.78-2.19)
[2023-08-22 23:14] LABS: Hemoglobin A1C 5.2 % (<5.7)
[2023-08-25 14:28] LABS: Insulin Level Total 69.2 uIU/mL (<=18.4)
[2023-08-31 22:11] LABS: Free Insulin 45.9 uIU/mL (1.5-14.9)
== END 2023-08-22 12:27 | disposition home or self-care (01) ==
LOC: ANHBWCLAB 12:28
PROVIDERS: PCP Nurse Practitioner Adult Health; Visit Provider Nurse Practitioner Adult Health
DX: R63.1 Polydipsia (principal); R63.5 Abnormal weight gain; R10.9 Unspecified abdominal pain; M54.9 Dorsalgia, unspecified
CPT/HCPCS: 36415; 72100; 74018; 80053; 81001; 83036; 83525; 83527; 84439; 84443

== ENCOUNTER 2023-09-05 13:28 | Outpatient (CLI) | payer OTHER, SELFPAY ==
[2023-09-05 19:56] LABS: Appearance Urine Turbid (Clear); Bacteria Urine 4+ /hpf; Bilirubin Urine Negative (Negative); Blood Urine Negative (Negative); Color Urine Dark Yellow (Yellow); Glucose Urine UA Negative (Negative); Ketones Urine Trace mg/dL (Negative); Leukocyte Esterase Ur 2+ LEU/UL (NEGATIVE); Need Manual Microscopic Reviewed; Nitrate Urine Negative (Negative); Non Pathogenic Casts 0-2; Protein Urine Trace mg/dL (Negative); Specific Grav Ur 1.025 (1.001-1.035); Squamous Epithelial Cell Urine Many /hpf (Few); WBC Urine 21-50 /hpf (0-3); pH Urine 6.5 (5.0-9.0)
[2023-09-05 20:00] LABS: Add Urine Microscopic? YES
== END 2023-09-05 13:29 | disposition home or self-care (01) ==
PROVIDERS: PCP Nurse Practitioner Adult Health; Visit Provider Nurse Practitioner Adult Health
DX: R39.9 Unspecified symptoms and signs involving the genitourinary system (principal)
CPT/HCPCS: 81001

== ENCOUNTER 2023-09-13 14:05 | Emergency (ER) | payer OTHER, SELFPAY ==
[2023-09-13 14:32] VITALS: BP 159/53; PULSE 69; RESP 16; TEMP 36.6; O2SAT 100
--- NOTE | 2023-09-13 15:11 | ED.GENADULT ---
HPI - General Adult General Chief complaint: Urogenital-Female Stated complaint: Sore Throat/Urinary Problem Source: patient Mode of arrival: ambulatory Limitations: no limitations History of Present Illness HPI narrative: Patient presents for evaluation of dysuria for the last 2 weeks. She indicates she was recently treated with Macrobid for urinary tract infection. She completed therapy as directed. She continues to have dysuria and urinary frequency with some suprapubic discomfort. She denies any hesitancy, hematuria, vaginal bleeding or discharge. She is also concerned about a sore throat that started today. No recent sick contacts to her knowledge. No fever, chills, nausea, vomiting, diarrhea. She took tylenol for her symptoms. No additional complaints or concerns. Related Data Allergies Allergy/AdvReac Type Severity Reaction Status Date / Time azithromycin Allergy Unknown RASH, Verified 02/08/23 13:15 DIARRHEA Penicillins Allergy Unknown RASH, Verified 02/08/23 13:15 DIARRHEA Review of Systems Review of Systems: CONSTITUTIONAL: Denies fever, chills, or sweats. EYES: Denies visual changes, redness, or discharge. ENT: Reports sore denies rhinorrhea, congestion, or otalgia. CARDIOVASCULAR: Denies chest pain, palpitations, or edema. RESPIRATORY: Denies cough or dyspnea. GASTROINTESTINAL: Denies abdominal pain, nausea, vomiting, or diarrhea. GENITOURINARY: Reports dysuria and urinary frequency. Denies hematuria, vaginal bleeding/discharge. SKIN: Denies rash or itching. MUSCULOSKELETAL: Denies back pain, joint pain, or myalgia. NEUROLOGIC: Denies headache, numbness, dizziness, or weakness. PSYCHIATRIC: Denies anxiety or depression. [facility] Past Medical History Medical History Anxiety Ear infection Morbid obesity On termite helper drug therapy PCOS (polycystic ovarian syndrome) Surgical History Surgical History History of placement of ear tubes Previous section x2 Family History Family History Mother Anxiety Depression Cancer Grandparent Diabetes mellitus Anxiety Depression Cancer Social History Social History Smoking status: Never smoker Alcohol intake: never Substance use: never Lack of Transportation: YES Lack of Food: Never True Current Housing: I Do Not Have Housing Concerned About Future Housing: No Difficulty Paying Gas/Electric Bills: No Difficulty Paying for Meds: YES Currently Unemployed: YES Education: High School Diploma/GED Difficulty w/ Childcare or Family Care: YES Spiritual care concerns: No Exam Narrative: GENERAL: Well-appearing, well-nourished, and in no acute distress. HEAD: Normocephalic, atraumatic. EYES: PERRLA and EOMI. ENT: Nares clear, no rhinorrhea or epistaxis. Mucous membranes moist. Oropharynx without tonsillar hypertrophy exudate or other lesions. Mild posterior pharyngeal erythema. Uvula is midline. Bilateral TMs pearly guaman nonbulging NECK: Supple. No adenopathy or masses. No carotid bruits or JVD CHEST: Clear to auscultation. No respiratory distress. No wheezes rales or rhonchi HEART: Regular rate and rhythm. No murmur heard. Normal peripheral pulses. ABDOMEN: Soft, nontender, nondistended, normal active bowel sounds. EXTREMITIES: Normal range of motion. No edema. SKIN: Warm, dry, no rash. NEURO: No focal deficits. Alert and oriented x3. PSYCH: Normal mood and affect. Course Course Emergency Course: This is a 33-year-old female who presented for evaluation of sore throat and urinary symptoms. Strep negative. Will send sample for throat culture. No evidence of UTI on urine today. Increase hydration. Follow up with primary provider. Go to the ER
== END 2023-09-13 15:11 | disposition home or self-care (01) ==
PROVIDERS: Emergency Provider Nurse Practitioner; PCP Family Medicine
DX: J02.9 Acute pharyngitis, unspecified (principal); R30.0 Dysuria
CPT/HCPCS: 81003; 87081; 87880; 99213; G0463

== ENCOUNTER 2023-09-18 15:02 | Emergency (ER) | payer OTHER, SELFPAY ==
[2023-09-18 15:04] VITALS: BP 135/64; PULSE 78; RESP 20; TEMP 36.9; O2SAT 100
--- NOTE | 2023-09-18 15:45 | ED.EAR ---
HPI - Ear Problem General Chief complaint: Ear Stated complaint: Ear Pain Source: patient, family and RN notes reviewed History of Present Illness HPI Narrative: 33-year-old female presents to urgent care with complaints of bilateral ear pain. Patient is also reporting a sore throat. Patient was seen here 5 days ago for her sore throat and tested negative for strep. Patient's daughter here today tested positive for strep throat. Patient reports a migraine Tuesday and Tuesday but states that could be from occurring her [id number] passing. Related Data Allergies Allergy/AdvReac Type Severity Reaction Status Date / Time azithromycin Allergy Unknown RASH, Verified 02/08/23 13:15 DIARRHEA Penicillins Allergy Unknown RASH, Verified 02/08/23 13:15 DIARRHEA Review of Systems Review of Systems: CONSTITUTIONAL: Denies fever, chills, or sweats. EYES: Denies visual changes, redness, or discharge. CARDIOVASCULAR: Denies chest pain, palpitations, or edema. RESPIRATORY: Denies cough or dyspnea. GASTROINTESTINAL: Denies abdominal pain, nausea, vomiting, or diarrhea. GENITOURINARY: Denies dysuria or hematuria. SKIN: Denies rash or itching. MUSCULOSKELETAL: Denies back pain, joint pain, or myalgia. NEUROLOGIC: Denies headache, numbness, or weakness. Pertinent positives per HPI. 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 PCOS (polycystic ovarian syndrome) Surgical History Surgical History History of placement of ear tubes Previous section x2 Family History Family History Mother Anxiety Depression Cancer Grandparent Diabetes mellitus Anxiety Depression Cancer Social History Social History Smoking status: Never smoker Alcohol intake: never Substance use: never Lack of Transportation: YES Lack of Food: Never True Current Housing: I Do Not Have Housing Concerned About Future Housing: No Difficulty Paying Gas/Electric Bills: No Difficulty Paying for Meds: YES Currently Unemployed: YES Education: High School Diploma/GED Difficulty w/ Childcare or Family Care: YES Spiritual care concerns: No Comments At the time of my signature, I reviewed and agree with the nursing past medical, surgical, social, and family history. There is no relevant family history pertinent to the patient complaint. Exam Narrative: GENERAL: This is a well-nourished, well-developed patient, in no apparent distress. HEAD: normocephalic, atraumatic. EYES: Sclera clear/white. Vision is grossly intact. EARS: External ears normal, auditory canals clear and without drainage, TMs normal without perforation. Hearing grossly intact. NOSE: External nose normal with no obvious nasal discharge, nares without redness, no rhinorrhea. THROAT: Mucous membranes moist, posterior pharynx clear. NECK: Neck supple, non-tender without lymphadenopathy, masses or thyromegaly. CARDIOVASCULAR: Regular rate and rhythm without murmurs, gallops, or rubs. RESPIRATORY: Clear to auscultation. Breath sounds equal bilaterally. No wheezes, rales, or rhonchi. GASTROINTESTINAL: Abdomen soft, non-tender, nondistended. Bowel sounds are active. No hepato-splenomegaly, or palpable masses. No guarding. SKIN: warm, intact with no suspicious lesions or rash, good texture and turgor. NEURO: awake, alert, and oriented to person, place and time. There were no obvious focal neurologic abnormalities. EXTREMITIES: No clubbing, cyanosis, or edema. No joint tenderness, effusion, or edema noted. BACK: Nontender without deformity or crepitus. No flank tenderness. Course Course Level of Care: Express Care Visit Vital Signs Vital
== END 2023-09-18 16:18 | disposition home or self-care (01) ==
PROVIDERS: Emergency Provider Nurse Practitioner Family; PCP Family Medicine
DX: J02.0 Streptococcal pharyngitis (principal); E28.2 Polycystic ovarian syndrome; E66.01 Morbid (severe) obesity due to excess calories
CPT/HCPCS: 87880; 99213; G0463

== ENCOUNTER 2024-02-23 09:54 | Outpatient (CLI) | payer OTHER, SELFPAY ==
[2024-02-23 19:09] LABS: Hematocrit 39.5 % (37.0-47.0); Hemoglobin 12.3 g/dL (12.0-15.0); Mean Corpuscular HGB Conc 31.1 g/dl (32-36); Mean Corpuscular Hemoglobin 28.7 pg (26-34); Mean Corpuscular Volume 92.1 fl (80-100); Mean Platelet Volume 12.4 fl (7.4-10.4); Platelet Count Result 246 k/mm3 (150-375); Red Blood Count 4.29 M/mm3 (4.2-5.4); Red Cell Distribution Width 14.1 % (11.5-14.5); White Blood Count 5.9 K/mm3 (4.5-10.0)
[2024-02-23 19:32] LABS: Alanine Aminotransferase 22 U/L (6-35); Albumin Level 4.3 g/dL (3.5-5.1); Alkaline Phosphatase 73 U/L (38-126); Anion Gap 8 mmol/L (4-12); Aspartate Amino Transferase 43 U/L (14-36); Bilirubin,Total 0.4 mg/dL (0.2-1.3); Blood Urea Nitrogen 10 mg/dL (7-17); Carbon Dioxide 22 mmol/L (22-30); Chloride 106 mmol/L (98-107); Cholesterol 152 mg/dL (0-200); Estimated Glomerular Filt Rate > 60; Glucose 96 mg/dL (65-110); HDL Direct 39 mg/dL; Sodium 136 mmol/L (137-145); Triglycerides 153 mg/dL (<150)
[2024-02-23 19:43] LABS: LDL Cholesterol Direct 99 mg/dL
[2024-02-23 19:48] LABS: Appearance Urine Cloudy (Clear); Bacteria Urine 4+ /hpf; Bilirubin Urine Negative (Negative); Blood Urine Negative (Negative); Color Urine Yellow (Yellow); Glucose Urine UA Negative (Negative); Ketones Urine Negative (Negative); Leukocyte Esterase Ur 1+ LEU/UL (Negative); Need Manual Microscopic Reviewed; Nitrate Urine Positive (Negative); Protein Urine Trace mg/dL (Negative); Specific Grav Ur 1.025 (1.001-1.035); Squamous Epithelial Cell Urine Many /hpf (Few); pH Urine 7.5 (5.0-9.0)
[2024-02-23 19:49] LABS: Add Urine Microscopic? YES
== END 2024-02-23 09:55 | disposition home or self-care (01) ==
LOC: ANHBWCLAB 09:56
PROVIDERS: PCP Nurse Practitioner Adult Health; Visit Provider Nurse Practitioner Adult Health
DX: Z13.9 Encounter for screening, unspecified (principal); E88.819 Insulin resistance, unspecified; R39.9 Unspecified symptoms and signs involving the genitourinary system
CPT/HCPCS: 36415; 80053; 80061; 81001; 83036; 84443; 85027

== ENCOUNTER 2024-06-15 08:24 | Emergency (ER) | payer OTHER, SELFPAY ==
--- NOTE | 2024-06-15 08:31 | ED.EAR ---
HPI - Ear Problem General Chief complaint: Ear Stated complaint: left ear pain Time Seen by Provider: 06/15/24 08:43 Source: patient and RN notes reviewed Mode of arrival: ambulatory Limitations: no limitations History of Present Illness HPI Narrative: 34-year-old female presents concern for left ear pain for several weeks. She is also reporting sore throat. She reports history of ear infections, she had a tube in the left ear that has fallen out. She denies fever, aches, chills, sweats MD Complaint: ear pain Related Data Allergies Allergy/AdvReac Type Severity Reaction Status Date / Time azithromycin Allergy Unknown RASH, Verified 05/31/24 14:04 DIARRHEA Penicillins Allergy Unknown RASH, Verified 05/31/24 14:04 DIARRHEA Review of Systems Review of Systems: CONSTITUTIONAL: Denies malaise, chills, sweats, or fever. EYES: Denies visual changes, redness, or discharge. ENT: Denies rhinorrhea, congestion, sinus pain. Reports left ear pain and sore throat CARDIOVASCULAR: Denies chest pain, palpitations, or edema. RESPIRATORY: Denies cough. Denies dyspnea. GASTROINTESTINAL: Denies abdominal pain, nausea, vomiting, diarrhea SKIN: Denies rash or itching. MUSCULOSKELETAL: Denies myalgia. NEUROLOGIC: Reports headache. All systems reviewed & are unremarkable except as noted in HPI and below PMFSH Past Medical History Medical History Anxiety Ear infection Morbid obesity On superintendent terminal drug therapy PCOS (polycystic ovarian syndrome) Surgical History Surgical History History of placement of ear tubes Previous section x2 Family History Family History Mother Anxiety Depression Cancer Grandparent Diabetes mellitus Anxiety Depression Cancer Social History Social History (Updated 12/06/23 @ 14:28 by Luly Reza MA) Smoking status: Never smoker Alcohol intake: never Substance use: never Lack of Transportation: No Lack of Food: Never True Current Housing: I Have Housing Concerned About Future Housing: No Difficulty Paying Gas/Electric Bills: No Difficulty Paying for Meds: No Currently Unemployed: No Education: High School Diploma/GED Difficulty w/ Childcare or Family Care: No Spiritual care concerns: No Comments At time of signature, agree with nursing past medical, surgical, social and family history. There is no relevant family history pertinent to the presenting complaint Exam Narrative: GENERAL: Well-appearing, well-nourished, and in no acute distress. HEAD: Normocephalic EYES: PERRLA, conjunctivae clear ENT: Nares clear. Mucous membranes moist. Right TM pearly guaman with dull light reflex, left TM erythematous, dislodged tympanostomy tube noted; no tragal tenderness. Oropharynx not erythematous without lesions. Tonsils not enlarged and without exudate, no drooling, no hoarseness, no trismus, uvula midline. NECK: Supple. No lymphadenopathy CHEST: Clear to auscultation, breath sounds equal. No wheezing, rhonchi, rales, or stridor. No respiratory distress, speaks in full sentences. HEART: Regular rate and rhythm. No murmur heard. SKIN: Warm, dry, no rash. NEURO: Alert and oriented x3. PSYCH: Normal mood and affect Course Course Emergency Course: Patient is aware of diagnosis, understands and agrees to treatment plan. Anticipatory guidance given. Patient agrees to follow-up as directed and is aware of reasons to seek care at the emergency department. Portions of this record may have been created with voice recognition software Level of Care: Express [place] [facility] Visit Vital Signs Vital signs: Reviewed. Medical Decision Making MDM Narrative Medical decision making narrative: I evaluated this in the [facility]. History is obtained from patient who is an
[2024-06-15 08:35] VITALS: BP 147/63; PULSE 66; RESP 16; TEMP 36.7; O2SAT 100
== END 2024-06-15 08:59 | disposition home or self-care (01) ==
PROVIDERS: Emergency Provider Nurse Practitioner; PCP Nurse Practitioner Adult Health
DX: H66.92 Otitis media, unspecified, left ear (principal); E66.01 Morbid (severe) obesity due to excess calories; Z68.44 Body mass index [BMI] 60.0-69.9, adult; E28.2 Polycystic ovarian syndrome
CPT/HCPCS: 99213; G0463

== ENCOUNTER 2024-08-15 10:04 | Emergency (ER) | payer OTHER, SELFPAY ==
[2024-08-15 10:25] VITALS: BP 137/63; PULSE 74; RESP 16; TEMP 37.1; O2SAT 99
[2024-08-15 10:51] LABS: EDSTREPNEGPOS1 Negative (Negative)
--- NOTE | 2024-08-15 11:06 | ED.URI ---
HPI - URI/Sore Throat General Chief Complaint: Upper Respiratory Infection Stated Complaint: ears/throat Time Seen by Provider: 08/15/24 10:49 Source: patient and RN notes reviewed Mode of arrival: ambulatory Limitations: no limitations History of Present Illness HPI Narrative: Patient presents today with a 4 day history of right ear pain and sore throat with nasal congestion and mild cough. Denies rhinorrhea, fever, shortness of breath. No [id number] treatment prior to arrival. Related Data Allergies Allergy/AdvReac Type Severity Reaction Status Date / Time azithromycin Allergy Unknown RASH, Verified 05/31/24 14:04 DIARRHEA Penicillins Allergy Unknown RASH, Verified 05/31/24 14:04 DIARRHEA Review of Systems Review of Systems: CONSTITUTIONAL: Denies body aches, fever, chills, or sweats. EYES: Denies visual changes, redness, or discharge. ENT: Denies rhinorrhea. + sore throat, right ear pain, congestion CARDIOVASCULAR: Denies chest pain, palpitations, or edema. RESPIRATORY: Denies dyspnea.+ cough GASTROINTESTINAL: Denies abdominal pain, nausea, vomiting, or diarrhea. GENITOURINARY: Denies dysuria or hematuria. SKIN: Denies rash, itching, or wounds. MUSCULOSKELETAL: Denies back pain, joint pain, or myalgia. NEUROLOGIC: Denies headache, numbness, tingling, or weakness. PSYCH: Denies depression or anxiety. [facility] Past Medical History Medical History Anxiety Ear infection Morbid obesity On mcc drug therapy PCOS (polycystic ovarian syndrome) Surgical History Surgical History History of placement of ear tubes Previous section x2 Family History Family History Mother Anxiety Depression Cancer Grandparent Diabetes mellitus Anxiety Depression Cancer Social History Social History Smoking status: Never smoker Alcohol intake: never Substance use: never Lack of Transportation: No Lack of Food: Never True Current Housing: I Have Housing Concerned About Future Housing: No Difficulty Paying Gas/Electric Bills: No Difficulty Paying for Meds: No Currently Unemployed: No Education: High School Diploma/GED Difficulty w/ Childcare or Family Care: No Spiritual care concerns: No Comments At time of signature, I have reviewed and agree with nursing past medical, surgical, social and family history unless otherwise noted. Please see nursing chart for further information. There is no relevant family history pertinent to the presenting complaint Exam Narrative: GENERAL: Well-appearing, well-nourished, and in no acute distress. HEAD: Normocephalic, atraumatic. EYES: EOMI. No redness or drainage. Conjunctivae normal. ENT: Mucous membranes pink and moist. Nares clear. No rhinorrhea. TMs normal bilaterally. Throat normal. Uvula midline. NECK: Normal AROM. Supple. No lymphadenopathy. CHEST: No respiratory distress. Clear to auscultation. HEART: Regular rate and rhythm. No murmur appreciated. EXTREMITIES: Normal range of motion. No edema. SKIN: Warm, dry, no rash. Capillary refill normal. Normal skin turgor. NEURO: No focal deficits. Alert and oriented x3. Gait steady. PSYCH: Normal affect. No signs of depression or anxiety. Course Course Level of Care: Express Care Visit Vital Signs Vital signs: Vital Signs Temperature 98.8 F 08/15/24 10:25 Pulse Rate 74 08/15/24 10:25 Respiratory Rate 16 08/15/24 10:25 Blood Pressure 137/63 08/15/24 10:25 Pulse Oximetry 99 08/15/24 10:25 Oxygen Delivery Room Air 08/15/24 10:25 Temperature 98.8 F 08/15/24 10:25 Pulse Rate 74 08/15/24 10:25 Respiratory Rate 16 08/15/24 10:25 Blood Pressure 137/63 08/15/24 10:25 Puls
== END 2024-08-15 11:10 | disposition home or self-care (01) ==
PROVIDERS: Emergency Provider Nurse Practitioner; PCP Nurse Practitioner Adult Health
DX: J06.9 Acute upper respiratory infection, unspecified (principal)
CPT/HCPCS: 87081; 87880; 99213; G0463

== ENCOUNTER 2024-10-26 16:49 | Emergency (ER) | payer OTHER, SELFPAY ==
[2024-10-26 16:51] VITALS: BP 137/75; PULSE 90; RESP 20; TEMP 37.5; O2SAT 99
--- NOTE | 2024-10-26 17:02 | ED.URI ---
HPI - URI/Sore Throat General Chief Complaint: Upper Respiratory Infection Stated Complaint: chest heavy/headache Time Seen by Provider: 10/26/24 17:02 Source: patient Mode of arrival: ambulatory Limitations: no limitations History of Present Illness HPI Narrative: 34 y/o female presented for c/o cough, chest congestion, nasal congestion, fatigue worsening for one week. Endorses wheezing, chest feels heavy and sob with exertion. Kids with RSV and pneumonia. Pt was seen last week at [facility] and told she tested negative for viral illness, and cxr was normal. Not taking anything for symptoms. 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 Morbid obesity Ear infection Anxiety PCOS (polycystic ovarian syndrome) Surgical History Surgical History History of placement of ear tubes Previous section x2 Family History Family History Mother Anxiety Depression Cancer Grandparent Diabetes mellitus Anxiety Depression Cancer Social History Social History Smoking status: Never smoker Alcohol intake: never Substance use: never Lack of Transportation: No Lack of Food: Never True Current Housing: I Have Housing Concerned About Future Housing: No Difficulty Paying Gas/Electric Bills: No Difficulty Paying for Meds: No Currently Unemployed: No Education: High School Diploma/GED Difficulty w/ Childcare or Family Care: No Spiritual care concerns: No Comments At time of signature, I have reviewed and agree with nursing past medical, surgical, social and family history unless otherwise noted. Please see nursing chart for further information. There is no relevant family history pertinent to the presenting complaint Exam Narrative: GENERAL: mildly ill-appearing, in no acute distress. EYES: EOMI. No redness or drainage. Conjunctivae normal. ENT: Mucous membranes pink and moist. nasal congestion TMs normal bilaterally. Throat normal. Uvula midline. NECK: Normal AROM. Supple. CHEST: No respiratory distress. Wheezing to all grayson. Harsh cough. HEART: Regular rate and rhythm. No murmur appreciated. SKIN: Warm, dry, no rash. Capillary refill normal. Normal skin turgor. NEURO: Alert and oriented x3. Gait steady. PSYCH: Normal affect. Course Course Emergency Course: Patient is aware of diagnosis, understands and agrees to treatment plan. Anticipatory guidance given. Patient agrees to follow-up as directed and is aware of reasons to seek care at the emergency department. Portions of this record may have been created with voice recognition software Level of Care: Express Care Visit Vital Signs Vital signs: Vital Signs Temperature 99.5 F 10/26/24 16:51 Pulse Rate 90 10/26/24 16:51 Respiratory Rate 20 10/26/24 16:51 Blood Pressure 137/75 10/26/24 16:51 Pulse Oximetry 99 10/26/24 16:51 Oxygen Delivery Room Air 10/26/24 16:51 Temperature 99.5 F 10/26/24 16:51 Pulse Rate 86 10/26/24 17:24 Respiratory Rate 20 10/26/24 17:24 Blood Pressure 137/75 10/26/24 16:51 Pulse Oximetry 99 10/26/24 17:24 Oxygen Delivery Room Air 10/26/24 16:51 MDM - URI/Sore Throat MDM Narrative Medical decision making narrative: Discussed physical exam findings. Reassessed after albuterol nebulizer. Patient reports improvement in breathing however lungs remain coarse with wheezing. Reviewed prescriptions. Advised supportive measures and signs/symptoms to go to the ER. Pt is appropriate for outpt treatment and f/u. Differential Diagnosis Differential diagnosis: Likely upper respiratory infection, sinusitis, viral infection, bronchitis and other ( Pneumonia) Discharge Plan Discharge Clinical Impression: Bronchitis Patient Disposition: Home, Self-Care Condition: Stable Instructions: Antibiotic Form, Acute Bronchitis (ED), Pneumonia (ED) Additional Instructions: Acute bronchitis can be contagious because it is usually caused by infection with a virus or bacteria. It is usually for a few days but you can be contagious for up to one week. Avoid crowds until you do not have a fever and symptoms are improved Take medication as directed Use the albuterol inhaler every 4--6 hours for the next 2 days. Recommend Flonase spray and Zyrtec (or Claritin/Shannon) over the counter Cough syrup may cause drowsiness; avoid driving or take it at night time. Tylenol 1000mg every 8 hours as needed for pain Symptomatic treatment includes: rest, fluids, and increase humidity of the air at home. Follow up with your primary care provider as needed in 1 week Go to the ER for worsening symptoms or concerns Patient Language: Greek Prescriptions: New methylprednisolone [Medrol (Librado)] 4 mg tablets,dose pack See Rx Instructions .ROUTE .COMPLEX Qty: 21 0RF Rx Instructions: orally per package directions albuterol sulfate 90 mcg/actuation HFA aerosol inhaler 2 inh inhalation QID PRN (Reason: shortness of breath or wheezing) Qty: 8.5 0RF doxycycline hyclate 100 mg tablet 100 mg PO BID 7 Days Qty: 14 0RF No Action trazodone 50 mg tablet 50 mg PO QHS PRN (Reason: insomnia) Qty: 30 1RF Follow-up/Referrals: Margarita Alcantar APRN [Primary Care Provider] - Time of Disposition: 17:45
[2024-10-26 17:05] VITALS: PULSE 83; RESP 20; O2SAT 98
[2024-10-26] MEDS: ALBUTEROL SULFATE NEB 2.5 MG/3 ML INH INHALATION (17:12)
[2024-10-26 17:24] VITALS: PULSE 86; RESP 20; O2SAT 99
== END 2024-10-26 17:53 | disposition home or self-care (01) ==
PROVIDERS: Emergency Provider Nurse Practitioner Family; PCP Nurse Practitioner Adult Health
DX: J40 Bronchitis, not specified as acute or chronic (principal); E66.01 Morbid (severe) obesity due to excess calories; Z68.44 Body mass index [BMI] 60.0-69.9, adult
CPT/HCPCS: 99213; G0463

== ENCOUNTER 2025-02-14 17:40 | Emergency (ER) | payer OTHER, SELFPAY ==
--- OUTSIDE RECORDS SUMMARY | 2025-02-14 17:43 | XMS_ITS | Referral Summary ---
Author Organization [facility] Address [address] [place] [address] Care Team Providers Care Dental Technician Metal Name Role Phone Margarita Alcantar NP Primary Care Provider [phone] Encounters Date Type Department Care Team Description 01/28/2025 Telephone [facility] Minimally Invasive Surgery [address] [place] [address] Medical Office Building [address] [place] [address] Blas Garcia CMA 01/09/2025 12:50 PM CDT E-Visit [facility] [address] [address] Oanh Marsh NP E-Visit for Urinary Tract Infection 01/09/2025 Patient Self-Triage [facility]/ Physicians [address] [place] [phone] Mychart, Generic Provider 01/09/2025 Patient Self-Triage [facility] [address] [place] [phone] Mychart, Generic Provider 01/09/2025 Patient Self-Triage [facility] [address] [place] [phone] Mychart, Generic Provider 12/31/2024 Patient Self-Triage [facility] [address] [place] [phone] Mychart, Generic Provider from Last 3 Months Allergies Active Allergy Reactions Criticality Noted Date Comments Azithromycin Rash,Diarrhea,Hives, Naus ea And Vomiting Medium 10/04/2016 Reaction: Rash, Metformin Diarrhea Medium 09/04/2020 Penicillins Rash High 09/09/2015 as a child extreme diarrhea no rash noted Medications topiramate (TOPAMAX) 100 mg tablet Take 100 mg by mouth daily 2 Active metFORMIN (FORTAMET) 500 mg 24 hr tablet Take 1 tablet (500 mg total) by mouth daily with breakfast Active pantoprazole DR (PROTONIX) 40 mg EC tabletIndications :Laryngeal spasm Take 1 tablet (40 mg total) by mouth daily 30 tablet 11 4 03/02/20 25 Active Lactobacillus rhamnosus GG (CULTURELLE) 10 billion cell capsuleIndication s:Acute streptococcal pharyngitis Take 1 capsule by mouth daily 3000 capsule 11 4 03/02/20 25 Active escitalopram (LEXAPRO) 20 mg tablet Take 1 tablet (20 mg total) by mouth daily 30 tablet 3 4 Active traZODone (DESYREL) 50 mg tablet Take 1 tablet (50 mg total) by mouth as needed Active dextromethorphan HBr (Wal-Tussin Cough) 15 mg/5 mL liquid Take 5 mL by mouth every 4 (four) hours as needed (cough) 120 mL 5 Active nitrofurantoin monohydrate (Macrobid) 100 mg capsule Take 1 capsule (100 mg total) by mouth 2 (two) times a day for 7 days 14 capsule 5 01/17/20 25 Active Problems Problem Noted Date Diagnosed Date Retained myringotomy tube in left ear 06/20/2024 Assessment & Plan (06/20/2024 11:52 AM CDT): Left ear tube removed today Oropharyngeal dysphagia 06/20/2024 Assessment & Plan (06/20/2024 11:52 AM CDT): Modified Barium swallow study Right facial swelling 06/20/2024 Assessment & Plan (06/20/2024 11:52 AM CDT): Ultrasound of the Neck - if Negative will consider CT facial bones Laryngeal spasm 03/02/2024 Assessment & Plan (03/02/2024 12:01 PM CDT): Protonix (pantoprazole) first thing in the morning, 30-60 minutes prior to any other medications, food or fluid other than water Clindamycin 600 mg twice daily for 21 days Follow up with Dentist Acute non-recurrent pansinusitis 10/30/2023 Assessment & Plan (10/30/2023 9:19 AM SHELL SORTER): Due to length of illness we will treat with antibiotic, please complete the whole course of antibiotics-no leftovers. Prescription for antibiotics sent. Reviewed potential benefits and potential side effects of doxycyline. Aware to complete full course of antibiotic. To continue otc medications. Discussed nasal saline rinses/neti pots. Discussed need to increase fluid intake. May use 1 teaspoon honey every 4 hours as needed for cough, encourage use of hot tea or hot water with honey. May use vicks vapo rub on chest and bottom of feet before bed. Cool mist humidifier in bedroom. Lots of water, rest and handwashing, no sharing cups or utensils. If symptoms worsen including but not limited to shortness of breath, chest pain and/or increasing pain please notify office or present to Emergency Department. Acute costochondritis 10/24/2023 Acute pharyngitis 10/24/2023 Otorrhea of right ear 03/01/2022 Assessment & Plan (09/02/2023 12:08 PM SHELL SORTER): Finish Tobradex to the right ear Follow up in 6 months, earlier with ear drainage Left ear tube extruding, Right T-tube removed today Assessment & Plan (08/09/2023 10:17 AM CDT): Doxycycline twice daily for 14 days, avoid sun exposure while taking this medication Tobradex 7 drops into the Right ear twice daily for 14 days How to Use Ear Drops discussed and Handout Consider removing T-tube if no improvement in otorrhea at follow up Assessment & Plan (03/01/2022 11:10 AM CDT): 64 ounces of caffeine free and soda free fluid daily Right ear: Tobradex drops 7 drops twice daily for 10 days Doxycycline twice daily for 14 days Follow up in 6-8 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, 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 Sialoadenitis 03/01/2022 Assessment & Plan (03/01/2022 11:11 AM CDT): 64 ounces of caffeine free and soda free fluid daily Right ear: Tobradex drops 7 drops twice daily for 10 days Doxycycline twice daily for 14 days Follow up in 6-8 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, 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 Follow up with Dentist as scheduled in March Otorrhea of both ears 04/24/2021 Assessment & Plan (12/31/2021 10:07 AM SHELL SORTER): Consider Doxycycline and Tobramycin if no improvement in otorrhea in 8 weeks versus replacing ear tubes Cefdinir twice daily with a meal for 14 days Ciprofloxacin 10 drops to both EARS, NOT EYES, twice daily for 10 days How to Use Ear Drops discussed and Handout provided Assessment & Plan (04/24/2021 11:29 AM CDT): Avoid ear cleaning techniques Avoid water to ears Avoid swimming until ear infection cleared Continue Ciprofloxacin 10 drops into each ear twice daily for 10 more days Finish Cefdinir How to Use Ear Drops discussed and Handout provided Acute streptococcal pharyngitis 12/01/2020 Assessment & Plan (03/02/2024 12:00 PM CDT): Protonix (pantoprazole) first thing in the morning, 30-60 minutes prior to any other medications, food or fluid other than water Clindamycin 600 mg twice daily for 21 days Follow up with Dentist Assessment & Plan (12/01/2020 4:20 PM SHELL SORTER): Cefdinir 600 mg daily with a meal for 14 days Pepcid 40 mg once daily at bedtime for at least one month Avoid ear cleaning techniques Avoid water to ears Laryngopharyngeal reflux (LPR) 12/01/2020 Assessment & Plan (12/01/2020 4:20 PM SHELL SORTER): Cefdinir 600 mg daily with a meal for 14 days Pepcid 40 mg once daily at bedtime for at least one month Avoid ear cleaning techniques Avoid water to ears Weight loss counseling, encounter for 07/10/2020 Assessment & Plan (09/04/2020 12:22 PM SHELL SORTER): Reviewed calorie restriction based on BMR as previously detailed. Reviewed recommendation/goal of >/= 150 minutes/week moderate-intensity aerobic exercise. Asked to keep detailed food diary for at least 1 week and bring to next visit and/or continue tracking on phone. Assessment & Plan (07/10/2020 11:09 AM CDT): Discussed that weight loss will require calorie deficit. Calculated basal metabolic rate and estimated total energy expenditure; discussed 500-1000 kcal/day deficit to lose 1-2 lb per week. Asked to keep detailed food diary for at least 1 week and bring to next visit. Discussed relatively small, although significant, role of exercise in weight loss; greater importance in weight maintenance as shown in Look Ahead study and National Weight Control Registry. Discussed recommendation/goal for 150 minutes per week moderate-intensity aerobic exercise. DDD (degenerative disc disease), lumbosacral PCOS (polycystic ovarian syndrome) 07/10/2020 Assessment & Plan (07/10/2020 11:14 AM CDT): Reviewed recent labs. Check A1c. Discussed insulin resistance including effect on weight and risk for progression to diabetes. Recommended low-carb, low-glycemic diet; choose whole grains and avoid more highly processed carbohydrates. Discussed potential benefits of this w/r/t gut microbiome. Referred to ADA and [employer] websites for additional information on topics including glycemic index/carbohydrate choices, protein sources. Start Metformin 500mg -- take daily for the 1st week, then increase to BID if tolerating. Discussed rationale in setting of insulin resistance. Discussed risks, benefits, alternatives, and potential side effects. Discussed possible addition of GLP-1 RA. Class 3 severe obesity due t o excess calories without serious comorbidity with body mass index (BMI) of 50.0 to 59.9 in adult 07/10/2020 Assessment & Plan (09/04/2020 12:24 PM SHELL SORTER): Obesity is improving. Diet interventions: as noted. Regular aerobic exercise program discussed. Pharmacotherapy as ordered. Assessment & Plan (07/10/2020 11:20 AM CDT): Obesity is worsening. General weight loss/lifestyle modification strategies discussed (elicit support from others; identify saboteurs; non-food rewards, etc). Behavioral treatment: recommended counseling. Diet interventions: as noted. Informal exercise measures discussed, e.g. taking stairs instead of elevator. Regular aerobic exercise program discussed. Pharmacotherapy as ordered. More detailed recommendations pending review of labs, food record. Consider topiramate in setting of migraine, DDD. Consider bupropion +/- naltrexone in setting of depression. BMI 50.0-59.9, adult 07/10/2020 Assessment & Plan (05/11/2022 9:12 AM CDT): Given their past success the patient would be a good candidate for weight loss surgery. We have gone over options such as the bypass and sleeve gastrectomy. We have also discussed risks and benefits such as blood clots, staple line leak as well as new or worsening reflux symptoms. They are in understanding. During this time will have them seen by the dietitian and psych. As we get closer to the time of surgery we will set him up for an EGD to look for hiatal hernia, H pylori or other gastric pathology. We will see them back in 4 weeks. They are in understanding of the plan. We have gone over small frequent meals shooting for a goal calorie intake of around 1600 spread throughout 4-5 meals. We have discussed not eating late at night. We have discussed cardiovascular exercise. Greater than 15 minutes was spent in counseling the patient on diet and exercise with regards to her morbid obesity. Metabolic and nutritional disorder 07/10/2020 Overview (09/04/2020): Didn't tolerate metformin. Assessment & Plan (09/04/2020 12:22 PM SHELL SORTER): Continue low-carb (<150 g/day), low-glycemic diet. Discussed options and will add GLP-1 analog. Discussed risks, benefits, alternatives, potential side effects. No personal or family history of MTC or MEN2. Reviewed dosing/titration. Referred to websites for additional instructions/info/video. Start semaglutide. Fatigue 07/10/2020 Assessment & Plan (07/10/2020 11:19 AM CDT): Labs. Discussed importance of adequate sleep; good sleep hygiene in controlling weight as well as for overall health. Obesity complicating in second trimest er 07/10/2020 Thickened endometrium 06/02/2020 Overview (06/02/2020): Initially incidentally noted on TVUS (10.5mm) Now w/ spottting BMI 56 Plan - Endometrial biopsy performed, pap performed - Will call patient with result - Consider progestin therapy for endometrial protection and cycle regulation Pelvic pain 05/15/2020 Overview (06/02/2020): Left adnexal pain TTP over abdomen and on bimanual exam Pelvic floor exam wnl, no exam e/o endometriosis or pelvic floor dysfunction No discharge, urinary/bowel symptoms CT with small, benign cyst unlikely to be causative of pelvic pain TVUS w/ 5.6cm anechoic L simple cyst, EMS 10.5mm Plan: - Will offer trial of progestin cycle regulation and cyst formation prevention pending biopsy result, as patient poor candidate for OCPs - Will discuss IUD/nexplanon for endometrial protection - Encouraged weight loss, now has appointment w/ weight clinic Secondary amenorrhea 05/15/2020 Overview (05/15/2020): Patient reports h/o PCOS dx, has hirsutism and acne and now 1y of amenorrhea c/w diagnosis Amenorrhea worsened in s/o weight gain, BMI now 56 Prior deliveries uncomplicated w/o instrumentation No thyroid s/sx, patient w/o heat/cold regulatory difficulty, skin/nail/hair problems, energy/fatigue problems, palpitations, edema, etc Plan: TSH, free/total T TVUS to eval pelvic anatomy Encouraged weight loss Offer trial of MPA (likely poor OCP candidate given BMI) Dysfunction of both eustachian tubes 03/20/2020 Assessment & Plan (03/20/2020 5:37 PM CDT): Avoid ear cleaning techniques Avoid water to ears Follow up in 6 months, earlier with any ear drainage or hearing loss Other chronic suppurative otitis media, bilatera l 02/19/2020 Assessment & Plan (03/20/2020 1:13 PM CDT): Avoid ear cleaning techniques Avoid water to ears Follow up in 6 months, earlier with any ear drainage or hearing loss Assessment & Plan (03/06/2020 11:31 AM CDT): Bilateral myringotomy with tube placement in office today Risks and complications discussed including anesthesia, bleeding, infection, hearing loss, ear tubes may fall out early, fall inwards, stay in longer than a few years, get clogged, fall out and leave a hole in the ear drum that would need to be patched, drain clear fluid. Ear drops to both ears twice daily for 5 days follow up in two weeks for recheck, if hearing worse will recommend repeat hearing test How to Use Ear Drops Assessment & Plan (02/19/2020 1:57 PM CDT): Bilateral myringotomy with tube placement Risks and complications discussed including anesthesia, bleeding, infection, hearing loss, ear tubes may fall out early, fall inwards, stay in longer than a few years, get clogged, fall out and leave a hole in the ear drum that would need to be patched, drain clear fluid. Hearing test - call with results and then arrange in office ear tube placement Sleep disturbance 02/19/2020 Assessment & Plan (07/10/2020 11:09 AM CDT): Discussed comorbidities associated with sleep apnea, including effects on weight, and stressed importance of adequate treatment if present. Consider repeating sleep study. Assessment & Plan (02/19/2020 1:57 PM CDT): Sleep study Urinary incontinence 02/20/2019 Adjustment disorder with depressed mood 12/04/19 18 Migraine headache 03/28/2017 Assessment & Plan (07/10/2020 11:10 AM CDT): Consider topiramate. Cervicalgia 03/28/2017 Social History Tobacco Use Types Packs/Day Years Used Date Smoking Tobacco: Never Smokeless Tobacco: Never Tobacco Cessation:Counseling Given: Not Answered Alcohol Use Standard Drinks/Week Comments No 0 (1 standard drink = 0.6 oz pur e alcohol) AUDIT-C Answer Date Recorded Q1: How often do you have a drink containing alc ohol? Never 09/19/2021 Average Number of Drinks Not on file 021 Frequency of Binge Drinking Not on file 08/25 Personal Safety Answer Date Recorded Have you ever been in or are you currently in a harmful physical or emotional relationship or is someone making you feel afraid or unsafe? Denies 08/11/2024 Comments No Sex and Gender Information Value Date Recorded Sex Assigned at Not on file Legal Sex Female 3:55 AM SHELL SORTER Gender Identity Not on file Sexual Orientation Not on file Last Filed Vital Signs Vital Sign Reading Time Taken Comments Blood Pressure 151/83 08/11/2024 3:21 PM CDT Pulse 72 08/11/2024 3:21 PM CDT Temperature 36.7 C (98 F) 08/11/2024 3:21 PM CDT Respiratory Rate 18 08/11/2024 3:21 PM CDT Oxygen Saturation 97% 08/11/2024 3:21 PM CDT Inhaled Oxygen Concentration - - Weight 161.9 kg (357 lb) 08/11/2024 3:21 PM CDT Height 162.6 cm (5' 4 ) 08/11/2024 3:21 PM CDT Body Mass Index 61.28 08/11/2024 3:21 PM CDT Plan of Treatment Not on file Procedures Procedure Name Priority Date/Time Associated Diagnosis Comments PAP WITH REFLEX TO HIGH RISK HPV Routine 06/02/2020 10:07 AM CDT from Last 3 Months or Most Recently Relevant to Health Maintenance Results * Pap w/reflex to High Risk HPV if ASCUS and patient 21-29 years old (06/02/2020 10:07 AM CDT) 06/02/2020 10:0 7 AM CDT 06/02/2020 1:32 PM CDT Narrative 06/05/2020 1:37 PM CDT EPIC results best viewed via link to PDF [facility] [place] [address] CYTOPATHOLOGY REPORT FINAL Patient Name: JAMES ROSA Gender: F : 1990 (Age: 29) Address: [address] [place] [address] Hospital #: [id number] Service: Gynecology Location: [facility] Patient Type: [facility] Ancillary Taken: 06/02/2020 Received: 06/02/2020 Accessioned: 06/02/2020 Reported: 06/05/2020 Physician(s): Margarito Conde M.D. FINAL INTERPRETATION SOURCE OF SPECIMEN: Liquid based Thin Prep pap with Reflex HPV STATEMENT OF ADEQUACY: - Satisfactory for evaluation - Endocervical cells/transformation zone sample absent GENERAL CATEGORY: - Negative for squamous intraepithelial lesion or malignancy 06/05/2020 13:37 SARTHAK Moody(ASCP) Report Electronically Reviewed and Signed Out By SARTHAK Moody(ASCP) 06/05/2020 13:37:06 Cervicovaginal Cytology (Pap Test) Disclaimer: The Pap test is a screening test used to detect cervical cancer and its precursors; it is not a diagnostic procedure. False negative and false positive results do occur. Pap test results should be interpreted in the context of pertinent clinical information and biopsy results as indicated. Gross Description A. Liquid based Thin Prep pap with Reflex HPV: Cervical/vaginal - Screening ThinPrep Clinical Diagnosis and History Last Menstrual Period: current Menstrual History: Irregular Cycles The patient is a 29 year old woman with abnormal uterine bleeding, no h/o abnl pap . Report Images and scanned documents, if included only viewable in PDF version The performance characteristics of some immunohistochemical stains, in-situ hybridization and fluorescence in-situ hybridization tests and immunophenotyping by flow cytometry cited in this report (if any) were determined by the Surgical Pathology Department at [facility] as part of an ongoing housing quality standard inspector program and in compliance with federally mandated regulations drawn from the Clinical Laboratory Improvement Act of 1988 (CLIA '88). Some of these tests rely on the use of analyte specific reagents and are subject to specific labeling requirements by the US Food and Drug Administration. Such diagnostic tests may only be performed in a facility that is certified by the Department of Health and Human Services as a high complexity laboratory under CLIA '88. The FDA has determined that such clearance or approval is not necessary. This test is used for clinical purposes. It should not be regarded as investigational or for research. Nevertheless, federal rules concerning the medical use of analyte specific reagents require that the following disclaimer be attached to the report: This test was developed and its performance characteristics determined by the Surgical Pathology Department of [facility]. It has not been cleared or approved by the U. S. Food and Drug Administration. Margarito Conde MD LAB CYTOLOGY ORDERABLES Final Result from Last 3 Months or Most Recently Relevant to Health Maintenance Insurance [facility] Advance Directives For more information, please contact: [phone] * Full Code (Latest Code Status on File) Date Activated Date Inactivated Comments 10/11/2018 3:28 PM 10/13/2018 4:57 PM * Full Code Date Activated Date Inactivated Comments 10/11/2018 9:51 AM 10/11/2018 3:28 PM Full CPR i n case of cardiopulmonary arrest Care Teams Dental Technician Metal Relationship Specialty Start Date End Date Margarita Alcantar NP [employer] [place] [address] PCP - General Nurse Practitioner 03/02/24
--- OUTSIDE RECORDS SUMMARY | 2025-02-14 17:43 | XMS_ITS | Clinical Summary ---
Author Organization [facility] Address [address] [place] [address] Phone Care Team Providers Care Mud Analysis Well Logging Captain Name Role Phone Eros Robertson DPM Unavailable Margarita Alcantar APRN Primary Care Provider [phone] Allergies Active Allergy Reactions Criticality Noted Date Comments Azithromycin Rash 06/30/2019 Medications topiramate (TOPAMAX) 100 MG Tablet Take 100 mg by mouth daily. 04/13/2022 Active buPROPion (WELLBUTRIN) 150 MG XL tablet TAKE 1 TABLET BY MOUTH EVERY DAY IN THE MORNING 04/13/2022 Active escitalopram (LEXAPRO) 20 MG Tablet Take 20 mg by mouth daily. 01/14/2022 Active Butalbital-APAP -Caffeine 50-300-40 MG CapsuleIndicati ons:Acute headache Take 1 Capsule by mouth every 4 hours as needed for Other (acute headache). 15 Capsule 06/05/2022 Active traMADol (ULTRAM) 50 MG TabletIndicatio ns:Right foot sprain, initial encounter Take 1 Tablet by mouth every 8 hours as needed for Moderate or more severe pain. 12 Tablet 12/31/2023 Active metoclopramide (REGLAN) 10 MG Tablet Take 1 Tablet by mouth 4 times daily as needed for Nausea - 1st line (headache). 10 Tablet 05/27/2024 Active acetaminophen-c odeine (TYLENOL #3) 300-30 MG TabletIndicatio ns:Dentalgia Take 1 Tablet by mouth every 6 hours as needed for Moderate or more severe pain. 12 Tablet 07/24/2024 Active Active Problems Problem Noted Date Diagnosed Date Sore throat 11/14/2018 Exposure to influenza 11/14/2018 Pain in left foot 12/08/2015 Fissure in skin of foot 12/08/2015 [place] of foot 12/08/2015 Encounters Date Type Department Care Team Description 11/15/2024 11:[address] JUDGE - 11/16/2024 1:[address] JUDGE Emergency [facility] Emergency [address] [place] [address] Macario Brewer MD Influenza A Discharge Disposition: Discharged to home or Selfcare from Last 3 Months Immunizations Immunization Administration Dates Next Due TDAP Vaccine 11/28/2015 Family History Medical History Relation Name Comments Colon Cancer Mother Hypertension Mother Miscarriage Mother Relation Name Status Comments Mother Alive Social History Tobacco Use Types Packs/Day Years Used Date Smoking Tobacco: Never Smokeless Tobacco: Never Tobacco Cessation:Counseling Given: No Alcohol Use Standard Drinks/Week Comments No 0 (1 standard drink = 0.6 oz pur e alcohol) Sexually Active Control Partners Comments Yes Male 3 days ago Comments No Sex and Gender Information Value Date Recorded Sex Assigned at Female 10/02/2023 1:[address] JUDGE Legal Sex Female 10:38 PM CDT Gender Identity Female 10/02/2023 1:[address] JUDGE Sexual Orientation Not on file Last Filed Vital Signs Vital Sign Reading Time Taken Comments Blood Pressure 97/49 11/16/2024 12:[address] JUDGE Pulse 65 11/16/2024 1:[address] JUDGE Temperature 35.9 C (96.7 F) 11/15/2024 11:[address] JUDGE Respiratory Rate 16 11/16/2024 12:[address] JUDGE Oxygen Saturation 100% 11/16/2024 1:[address] JUDGE Inhaled Oxygen Concentration - - Weight 158.8 kg (350 lb) 11/15/2024 11:[address] JUDGE Height 165.1 cm (5' 5 ) 11/15/2024 11:[address] JUDGE Body Mass Index 58.24 11/15/2024 11:[address] JUDGE Plan of Treatment Health Maintenance Due Date Last Done Comments Hepatitis C Virus (HCV) Screening 1991 Pap Smear 2012 Cervical Cancer Screening (CCS) 2021 HPV/Cotest 2021 Influenza Immunization (#1) 2024 SARS-COV-2 Immunization ( season) 2024 Td Immunization Every 10 Years (Adults With 1 Tdap) 02/15/2029 02/15/2019, 11/28/2015, 02/25/2015, Additional history exists Respiratory Syncytial Virus (RSV) Immunization (Adult) (1 - 1-dose 75+ series) 2066 Hepatitis B Immunization Completed 002, 08/05/2001, 07/04/2001 DTaP/Tdap/Td Immunization Discontinued 2018, 11/28/2015, 02/25/2015, Additional history exists Meningococcal Immunization (ACWY) Aged Out No longer eligible based on patient's age to complete this topic Pneumococcal Immunization Combined Aged Out No longer eligible based on patient's age to complete this topic Rotavirus Immunization Aged Out No lo nger eligible based on patient's age to complete this topic Procedures Procedure Name Priority Date/Time Associated Diagnosis Comments XR CHEST 2 VIEWS STAT 11/16/2024 12:[address]GE from Last 3 Months Results * XR CHEST 2 VIEWS (11/16/2024 12:[address] JUDGE) Anatomical Region Laterality Modality Chest N/A Digital Radiogra phy 11/16/2024 12:[address] JUDGE Impressions 11/16/2024 12:[address] JUDGE IMPRESSION: No acute cardiopulmonary abnormality. Narrative 11/16/2024 12:[address] JUDGE EXAM DESCRIPTION: XR CHEST 2 VIEWS REASON FOR STUDY: Cough and chest pain since 10/17/2024. Intermittent fevers, body aches and nausea and vomiting in the morning. TECHNIQUE: 1 radiographic view(s) of the chest. COMPARISON: 10/22/2024 FINDINGS: LUNGS: No focal opacity, pleural effusion, or pneumothorax. HEART/MEDIASTINUM: Cardiac silhouette normal in size. Mediastinal and hilar contours appear normal. LINES/TUBES: None. BONES: No acute osseous abnormality. THIS IS AN ELECTRONICALLY VERIFIED FINAL REPORT 11/16/2024 12:11 AM - Electronically signed by Oracio De La Torre M.D. KT: MACK Report ID: [id number] Reading Location: [id number] Procedure Note Oracio De La Torre MD - 11/16/2024 EXAM DESCRIPTION: XR CHEST 2 VIEWS REASON FOR STUDY: Cough and chest pain since 10/17/2024. Intermittent fevers, body aches and nausea and vomiting in the morning. TECHNIQUE: 1 radiographic view(s) of the chest. COMPARISON: 10/22/2024 FINDINGS: LUNGS: No focal opacity, pleural effusion, or pneumothorax. HEART/MEDIASTINUM: Cardiac silhouette normal in size. Mediastinal and hilar contours appear normal. LINES/TUBES: None. BONES: No acute osseous abnormality. THIS IS AN ELECTRONICALLY VERIFIED FINAL REPORT 11/16/2024 12:11 AM - Electronically signed by Oracio De La Torre M.D. KT: MACK Report ID: [id number] Reading Location: [id number] IMPRESSION: No acute cardiopulmonary abnormality. Macario Brewer MD IMG DIAGNOSTIC ORDER [place] Final Result from Last 3 Months Insurance MEDICAID [employer] Advance Directives * Full Code (Latest Code Status on File) Date Activated Date Inactivated Comments 12/01/2015 2:08 PM 12/01/2015 8:56 PM Full Code: FULL ARREST: Attempt Resuscitation/CPR and use intubation and mechanical ventilation as indicated. PRE-ARREST: Use all measures to stabilize patient. Care Teams Mud Analysis Well Logging Captain Relationship Specialty Start Date End Date Margarita Alcantar APRN PCP - General Advanced Practice Nurse 01/19/24 Eros Robertson DPM Podiatry 03/18/16
--- OUTSIDE RECORDS SUMMARY | 2025-02-14 17:43 | XMS_ITS | Clinical Summary ---
Author Organization [facility] Address [address] [place] [address] Care Team Providers Care Metal Drawer Name Role Phone Margarita Alcantar NP Primary Care Provider [phone] Allergies Active Allergy Reactions Criticality Noted Date [...] 10/30/2023 Assessment & Plan (10/30/2023 9:19 AM BEAM RACKER): Due to length of illness we will [...] 03/01/2022 Assessment & Plan (09/02/2023 12:08 PM BEAM RACKER): Finish Tobradex to the right ear Follow [...] weeks if Right submandibular gland region distillery manager, 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 Sialoadenitis 03/01/2022 Assessment & Plan (03/01/2022 11:11 AM CDT): 64 ounces of caffeine free and soda free fluid daily Right ear: Tobradex drops 7 drops twice daily for 10 days Doxycycline twice daily for 14 days Follow up in 6-8 weeks if Right submandibular gland region distillery manager, 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 Follow up with Dentist as scheduled in March Otorrhea of both ears 04/24/2021 Assessment & Plan (12/31/2021 10:07 AM BEAM RACKER): Consider Doxycycline and Tobramycin if no improvement [...] Dentist Assessment & Plan (12/01/2020 4:20 PM BEAM RACKER): Cefdinir 600 mg daily with a meal for 14 days Pepcid 40 mg once daily at bedtime for at least one month Avoid ear cleaning techniques Avoid water to ears Laryngopharyngeal reflux (LPR) 12/01/2020 Assessment & Plan (12/01/2020 4:20 PM BEAM RACKER): Cefdinir 600 mg daily with a meal for 14 days Pepcid 40 mg once daily at bedtime for at least one month Avoid ear cleaning techniques Avoid water to ears Weight loss counseling, encounter for 07/10/2020 Assessment & Plan (09/04/2020 12:22 PM BEAM RACKER): Reviewed calorie restriction based on BMR as [...] w/r/t gut microbiome. Referred to ADA and [place] [facility] websites for additional information on topics [...] 07/10/2020 Assessment & Plan (09/04/2020 12:24 PM BEAM RACKER): Obesity is improving. Diet interventions: as noted. [...] metformin. Assessment & Plan (09/04/2020 12:22 PM BEAM RACKER): Continue low-carb (<150 g/day), low-glycemic diet. Discussed [...] for overall health. [facility] Thickened endometrium 06/02/2020 Overview (06/02/2020): [...] 11:10 AM CDT): Consider topiramate. Cervicalgia 03/28/2017 Encounters Date Type Department Care Team Description 01/28/2025 Telephone [facility] Minimally Invasive Surgery [address] [place] [address] Medical Office Building [address] [place] [address] Blas Garcia CMA 01/09/2025 12:50 PM CDT E-Visit [facility] Medical [facility] Virtual Care [address] [place] [phone] Oanh Marsh NP E-Visit for Urinary Tract Infection 01/09/2025 Patient Self-Triage [facility] HealthCare/ Physicians [address] [place] [id number] Mychart, Generic Provider 01/09/2025 Patient Self-Triage [facility] HealthCare/[facility] Physicians [address] [place] [id number] Mychart, Generic Provider 01/09/2025 Patient Self-Triage [facility] [address] [place] [id number] Mychart, Generic Provider 12/31/2024 Patient Self-Triage [facility] HealthCare/ Physicians [address] [place] [id number] Mychart, Generic Provider from Last 3 Months Surgical History Surgery Date Site/Laterality Comments SECTION SECTION TYMPANOSTOMY TUBE PLACEMENT Medical History Medical History Date Comments Back pain Shoulder pain Mental disorder was taking lexap ro PCOS (polycystic ovarian syndrome) Family History Medical History Relation Name Comments Unknown Family History Father not i n contact Diabetes Maternal Grandfather Cancer Mother Colon cancer Mother Cancer, colon; Diabetes Paternal Grandfather Relation Name Status Comments Father Maternal Grandfather Mother Paternal Grandfather Social History Tobacco Use Types Packs/Day Years [...] on file Legal Sex Female 3:55 AM BEAM RACKER Gender Identity Not on file Sexual Orientation Not on file Obstetrics History Para Term AB IAB SAB Ectopic Multiple Livin g Live Births 3 2 2 0 1 1 Date Outcome GA Total Labor Labor//3rd Weight Sex Type Anes PTL Dayanara A1 A5 Name Clin 2015 Term CS-Un spec 2017 Term 39w 0d 0h 01m 0h 01m 4.355 kg (9 lb 9.6 oz) F CS-LT ranv Spinal N Livin g 6 9 PLUMM ER,GI RLBET ALLAN vale, Vimal khan MD Complications:None Delivery Location:This Facil ity ([facility]) Last Filed Vital Signs Vital Sign Reading [...] 08/11/2024 3:21 PM CDT Plan of Treatment Health Maintenance Due Date Last Done Comments Depression Screening 1991 Hepatitis C Screening 1991 Varicella Vaccines (1 of 2 - 13+ 2-dose series) 2004 Regular Well Visit/Exam 18-64 2009 Cervical Cancer Screening 06/02/2021 06/02/2020 Influenza Vaccine (Season Ended) 2025 DTaP/Tdap/Td Vaccine (10 - Td or Tdap) 02/15/2029 02/15/2019, 11/28/2015, 02/25/2015, Additional history exists Hepatitis B Screening Completed 01/06/2002 , 08/05/2001, 07/04/2001 HPV Vaccines Aged Out No longer eligi ble based on patient's age to complete this topic Pneumococcal vaccine <65 Aged Out No longer eligible based on [...] results best viewed via link to PDF [facility] Shalini Garcia Laboratory of Surgical Pathology [address] [place], [place] [id number] CYTOPATHOLOGY REPORT FINAL Patient Name: JAMES ROSA Gender: F : 1990 (Age: 29) Address: [address] [place] [address] [facility] #: [id number] Service: Gynecology Location: [facility] Patient Type: [facility] Ancillary Taken: 06/02/2020 Received: 06/02/2020 Accessioned: 06/02/2020 Reported: 06/05/2020 Physician(s): Margarito Conde M.D. FINAL INTERPRETATION SOURCE OF SPECIMEN: Liquid based Thin Prep pap with Reflex HPV STATEMENT OF ADEQUACY: - Satisfactory for evaluation - Endocervical cells/transformation zone sample absent GENERAL CATEGORY: - Negative for squamous intraepithelial lesion or malignancy /06/05/2020 13:37 SARTHAK Moody(ASCP) Report Electronically Reviewed and [...] determined by the Surgical Pathology Department at [facility] as part of an ongoing quality assurance engineer program and in compliance with federally mandated [...] determined by the Surgical Pathology Department of [facility]. It has not been cleared or approved by the U. S. Food and Drug Administration. Margarito Conde MD LAB CYTOLOGY ORDERABLES Final Result from Last 3 Months or Most Recently Relevant to Health Maintenance Insurance Advance Directives For more information, please contact: [phone] * Full Code (Latest Code Status on File) Date Activated Date Inactivated Comments 10/11/2018 3:28 PM 10/13/2018 4:57 PM * Full Code Date Activated Date Inactivated Comments 10/11/2018 9:51 AM 10/11/2018 3:28 PM Full CPR i n case of cardiopulmonary arrest Care Teams Metal Drawer Relationship Specialty Start Date End Date Margarita Alcantar NP [facility] [place] [place] [address] PCP - General Nurse Practitioner 03/02/24
[2025-02-14 17:46] VITALS: BP 133/61; PULSE 70; RESP 20; TEMP 36.7; O2SAT 100
--- NOTE | 2025-02-14 18:33 | ED_ITS ---
HPI - URI/Sore Throat General Chief Complaint: Upper Respiratory Infection Stated Complaint: sore throat/dizzy/ear pain Time Seen by Provider: 02/14/25 18:10 Source: patient, RN notes reviewed and old records reviewed Mode of arrival: ambulatory Limitations: no limitations History of Present Illness HPI Narrative: 34 year old female who presents to [facility] care with complaints of ear pain dizziness or 5 days and feels like something is stuck in her throat with headache for the past 3 days. Patient reports no known fevers, chills or sweats or any body aches. She has been taking Tylenol for her discomfort. MD elicited complaint: sore throat and other (ear pain and dizziness) Onset (ago): day(s) (3) Pain scale (0-10): 6 Able to tolerate fluids by mouth: Yes Treatments prior to arrival: acetaminophen Related Data Allergies Allergy/AdvReac Type Severity Reaction Status Date / Time azithromycin Allergy Unknown RASH, Verified 02/14/25 18:02 DIARRHEA Review of Systems Review of Systems: CONSTITUTIONAL: reports malaise, no chills, sweats, or fever. EYES: Denies visual changes, redness, or discharge. ENT: Reports rhinorrhea, congestion, no sinus pain, bilateral otalgia and sore throat. CARDIOVASCULAR: Denies chest pain, palpitations, or edema. RESPIRATORY: Reports cough.? Denies dyspnea. GASTROINTESTINAL: Denies abdominal pain, nausea, vomiting, diarrhea SKIN: Denies rash or itching. MUSCULOSKELETAL: Denies myalgia. NEUROLOGIC:Reports headache. All systems reviewed & are unremarkable except as noted in HPI and below PMFSH Past Medical History Medical History On ferry terminal agent drug therapy Morbid obesity Ear infection Anxiety PCOS (polycystic ovarian syndrome) Surgical History Surgical History History of placement of ear tubes Previous section x2 Family History Family History Mother Anxiety Depression Cancer Grandparent Diabetes mellitus Anxiety Depression Cancer Social History Social History Smoking status: Never smoker Alcohol intake: never Substance use: never Lack of Transportation: No Lack of Food: Never True Current Housing: I Have Housing Concerned About Future Housing: No Difficulty Paying Gas/Electric Bills: No Difficulty Paying for Meds: No Currently Unemployed: No Education: High School Diploma/GED Difficulty w/ Childcare or Family Care: No Spiritual care concerns: No Comments At time of signature, agree with nursing past medical, surgical, social and family history. There is no relevant family history pertinent to the presenting complaint Exam Narrative: GENERAL: Well-appearing, well-nourished, obese,and in no acute distress. HEAD: Normocephalic EYES: PERRLA, conjunctivae clear ENT: Nares clear, turbinates edematous and erythematous, clear discharge. Mucous membranes moist Right TM red and bulging, Left TM pearly guaman with dull light reflex; no tragal tenderness. Oropharynx erythematous without lesions. Tonsils not enlarged and without exudate, no drooling, no hoarseness, no trismus, uvula midline reddened and swollen,post nasal drainage noted NECK: Supple. No lymphadenopathy CHEST: Clear to auscultation, breath sounds equal. No wheezing, rhonchi, rales, or stridor. No respiratory distress, speaks in full sentences.no acute cough noted SAO2 100% on room air HEART: Regular rate and rhythm. No murmur heard. SKIN: Warm, dry, no rash. NEURO: Alert and oriented x3. PSYCH: Normal mood and affect Course Course Emergency Course: Patient is aware of diagnosis, understands and agrees to treatment plan.? Anticipatory guidance given.? Patient agrees to follow-up as directed and is aware of reasons to seek care at the emergency department. Portions of this record may have been created with voice recognition software Level of Care: Express Care Visit Vital Signs Vital signs: Vital Signs Temperature 36.7 C 02/14/25 17:46 Pulse Rate 70 02/14/25 17:46 Respiratory Rate 20 02/14/25 17:46 Blood Pressure 133/61 02/14/25 17:46 Pulse Oximetry 100 02/14/25 17:46 Oxygen Delivery Room Air 02/14/25 17:46 Temperature 36.7 C 02/14/25 17:46 Pulse Rate 70 02/14/25 17:46 Respiratory Rate 20 02/14/25 17:46 Blood Pressure 133/61 02/14/25 17:46 Pulse Oximetry 100 02/14/25 17:46 Oxygen Delivery Room Air 02/14/25 17:46 Reviewed MDM - URI/Sore Throat MDM Narrative Medical decision making narrative: Differential diagnosis considered: Padilla virus, strep pharyngitis, allergic rhinitis, upper respiratory tract infection, sinusitis, rhinosinusitis, nasopharyngitis. viral pharyngitis, otitis media, otitis externa, pneumonia, bronchitis, viral cough syndrome, viral syndrome, and influenza.? Exam findings show no acute concerns or changes; patient is non-toxic appearing and is in no distress.? Patient is appropriate for outpatient treatment and follow-up. Differential Diagnosis Differential diagnosis: Likely upper respiratory infection, otitis media, viral infection, pharyngitis and other (strep throat, uvula red and swollen) Lab Data Attestation: I reviewed the patient's lab results. Lab results narrative: strep screen negative, culture sent Labs: Lab Results 02/14/25 Range/Units 17:50 POC Grp A Strep Screen Negative (Negative) reviewed Critical Care Time Critical Care Time Critical Care Time: No Discharge Plan Discharge Clinical Impression: Otitis media, right Qualifiers: Otitis media type: serous Chronicity: acute Recurrence: not specified as recurrent Qualified Code(s): H65.01 - Acute serous otitis media, right ear Pharyngitis Qualifiers: Pharyngitis/tonsillitis etiology: unspecified etiology Qualified Code(s): J02.9 - Acute pharyngitis, unspecified Patient Disposition: Home Condition: Stable Instructions: Antibiotic Form, Pharyngitis (ED), Ear Infection (GEN) Additional Instructions: Increase fluids especially juices and water Jpyz-ukh-ryyiuti cough and cold medicine of your choice for your symptoms Zyrtec, Claritin or Shannon daily heat to the face 20-30 minutes 4-6 times a day for pain Salt water gargles, throat lozenges or throat sprays as desired Antibiotic as directed--finished the medication If your symptoms persist, change or worsen significantly before you can contact your personal physician then please, without delay, go to the emergency department for further evaluation. Follow-up with PCP in 7-10 days or sooner if needed Follow up with PCP soon in regards to your blood pressure which is elevated above threshold for referral. Blood pressure above 120/80 may indicate pre- hypertension. 133/61 Patient Language: [place] Islander Prescriptions: New amoxicillin-pot clavulanate 875-125 mg tablet 1 tablet PO Q12H Qty: 20 0RF dexamethasone 4 mg tablet 4 mg PO DAILY Qty: 2 0RF Rx Instructions: one time dose Follow-up/Referrals: Margarita Alcantar APRN [Primary Care Provider] - Time of Disposition: 18:44 Quality [place] Coma Scale Eyes: Open Verbal: Oriented and Alert Motor: Follows Commands Kasey Coma Total Score: 15
[2025-02-14 18:58] LABS: EDSTREPNEGPOS1 Negative (Negative)
== END 2025-02-14 18:50 | disposition home or self-care (01) ==
PROVIDERS: Emergency Provider Registered Nurse; PCP Nurse Practitioner Adult Health
DX: H65.01 Acute serous otitis media, right ear (principal); J02.9 Acute pharyngitis, unspecified; E28.2 Polycystic ovarian syndrome; E66.01 Morbid (severe) obesity due to excess calories; Z68.44 Body mass index [BMI] 60.0-69.9, adult
CPT/HCPCS: 87081; 87880; 99213; G0463

== ENCOUNTER 2025-02-19 09:59 | Outpatient (CLI) | payer OTHER, SELFPAY ==
--- OUTSIDE RECORDS SUMMARY | 2025-02-19 11:06 | XMS_ITS | Clinical Summary ---
Author Organization [facility] Address [address] [place] [address] Phone Care Team Providers Care Self Propelled Mining Machine Operator Name Role Phone Eros Robertson DPM Unavailable [phone] Margarita Alcantar APRN Primary Care Provider [phone] Allergies Active Allergy Reactions Criticality Noted Date [...] 12/08/2015 Fissure in skin of foot 12/08/2015 [place] of foot 12/08/2015 Immunizations Immunization Administration Dates Next Due TDAP [...] Sex Assigned at Female 10/02/2023 1:20 AM GEOSCIENCE LABORATORY TECHNICIAN Legal Sex Female 10:38 PM CDT Gender Identity Female 10/02/2023 1:20 AM GEOSCIENCE LABORATORY TECHNICIAN Sexual Orientation Not on file Last Filed Vital Signs Vital Sign Reading Time Taken Comments Blood Pressure 97/49 11/16/2024 12:45 AM GEOSCIENCE LABORATORY TECHNICIAN Pulse 65 11/16/2024 1:30 AM GEOSCIENCE LABORATORY TECHNICIAN Temperature 35.9 C (96.7 F) 11/15/2024 11:22 PM GEOSCIENCE LABORATORY TECHNICIAN Respiratory Rate 16 11/16/2024 12:45 AM GEOSCIENCE LABORATORY TECHNICIAN Oxygen Saturation 100% 11/16/2024 1:30 AM GEOSCIENCE LABORATORY TECHNICIAN Inhaled Oxygen Concentration - - Weight 158.8 kg (350 lb) 11/15/2024 11:22 PM GEOSCIENCE LABORATORY TECHNICIAN Height 165.1 cm (5' 5 ) 11/15/2024 11:22 PM GEOSCIENCE LABORATORY TECHNICIAN Body Mass Index 58.24 11/15/2024 11:22 PM GEOSCIENCE LABORATORY TECHNICIAN Plan of Treatment Health Maintenance Due Date [...] on patient's age to complete this topic Insurance MED[employer]ID [employer] Advance Directives * Full Code (Latest Code Status on File) Date Activated Date Inactivated Comments 12/01/2015 2:08 PM 12/01/2015 8:56 PM Full Code: FULL ARREST: Attempt Resuscitation/CPR and use intubation and mechanical ventilation as indicated. PRE-ARREST: Use all measures to stabilize patient. Care Teams Self Propelled Mining Machine Operator Relationship Specialty Start Date End Date Margarita Alcantar APRN PCP - General Advanced Practice Nurse 01/19/24 Eros Robertson DPM Podiatry 03/18/16
--- OUTSIDE RECORDS SUMMARY | 2025-02-19 11:06 | XMS_ITS | Clinical Summary ---
Author Organization [facility] Address [address] [place] [address] Care Team Providers Care Social Worker Aide Name Role Phone Margarita Alcantar NP Primary Care Provider Allergies Active Allergy Reactions Criticality Noted Date [...] Active pantoprazole DR (PROTONIX) 40 mg EC tabletIndications: Laryngeal spasm Take 1 tablet (40 mg total) by mouth daily 30 tablet 11 4 03/02/20 25 Active Lactobacillus rhamnosus GG (CULTURELLE) 10 billion cell capsuleIndications :Acute streptococcal pharyngitis Take 1 capsule by mouth [...] as needed (cough) 120 mL 5 Active Active Problems Problem Noted Date Diagnosed [...] 10/30/2023 Assessment & Plan (10/30/2023 9:19 AM ASSEMBLER [employer]ILD[employer]): Due to length of illness we will [...] 03/01/2022 Assessment & Plan (09/02/2023 12:08 PM ASSEMBLER [employer]): Finish Tobradex to the right ear Follow [...] 6-8 weeks if Right submandibular gland region incubator tender, 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 Sialoadenitis 03/01/2022 Assessment & Plan (03/01/2022 11:11 AM CDT): 64 ounces of caffeine free and soda free fluid daily Right ear: Tobradex drops 7 drops twice daily for 10 days Doxycycline twice daily for 14 days Follow up in 6-8 weeks if Right submandibular gland region incubator tender, 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 Follow up with Dentist as scheduled in March Otorrhea of both ears 04/24/2021 Assessment & Plan (12/31/2021 10:07 AM ASSEMBLER [employer]): Consider Doxycycline and Tobramycin if no improvement [...] Dentist Assessment & Plan (12/01/2020 4:20 PM ASSEMBLER [employer]): Cefdinir 600 mg daily with a meal for 14 days Pepcid 40 mg once daily at bedtime for at least one month Avoid ear cleaning techniques Avoid water to ears Laryngopharyngeal reflux (LPR) 12/01/2020 Assessment & Plan (12/01/2020 4:20 PM [employer]SEMBLER [employer]): Cefdinir 600 mg daily with a meal for 14 days Pepcid 40 mg once daily at bedtime for at least one month Avoid ear cleaning techniques Avoid water to ears Weight loss counseling, encounter for 07/10/2020 Assessment & Plan (09/04/2020 12:22 PM ASSEMBLER [employer]): Reviewed calorie restriction based on BMR as [...] w/r/t gut microbiome. Referred to ADA and [facility] websites for additional information on topics including [...] 07/10/2020 Assessment & Plan (09/04/2020 12:24 PM [employer]SEMBLER [employer]): Obesity is improving. Diet interventions: as noted. [...] metformin. Assessment & Plan (09/04/2020 12:22 PM ASSEMBLER [employer]): Continue low-carb (<150 g/day), low-glycemic diet. Discussed [...] Type Department Care Team Description 01/28/2025 Telephone [facility] Minimally Invasive Surgery [facility] Medical Office Building [address] [place] [address] Blas Garcia CMA 01/09/2025 12:50 PM CDT E-Visit [facility] Medical Group Virtual Care [address] [place] [phone] Oanh Marsh NP E-Visit for Urinary Tract Infection 01/09/2025 Patient Self-Triage [facility] HealthCare/ Physicians [address] [place] [phone] Mychart, Generic Provider 01/09/2025 Patient Self-Triage [facility]/ Physicians [address] [place] [phone] Mychart, Generic Provider 01/09/2025 Patient Self-Triage [facility] HealthCare/ Physicians [address] [place] [phone] Mychart, Generic Provider 12/31/2024 Patient Self-Triage [facility]/ Physicians [address] [place] [phone] Mychart, Generic Provider from Last 3 Months [...] on file Legal Sex Female 3:55 AM ASSEMBLER [employer] Gender Identity Not on file Sexual Orientation Not on file Obstetrics History Para Term AB IAB SAB Ectopic Multiple Livin g Live Births 3 2 2 0 1 1 Date Outcome GA Total Labor Labor/2nd/3rd Weight Sex Type Anes PTL Dayanara A1 A5 Name Clin 2015 Term CS-Un spec 2017 Term 39w 0d 0h 01m 0h 01m 4.355 kg (9 lb 9.6 oz) F CS-LT ranv Spinal N Livin g 6 9 PLUMM ER,GI RLBET ALLAN vale, Vimal khan MD Complications:None Delivery Location:This [facility] ([facility]) Last Filed [...] PM CDT Narrative 06/05/2020 1:37 PM CDT [facility] results best viewed via link to PDF [facility] Shalini Garcia [facility] [place] [address] CYTOPATHOLOGY REPORT FINAL Patient Name: JAMES ROSA Gender: F : 1990 (Age: 29) Address: [address] [place] [address] Hospital #: [id number] Service: Gynecology Location: [facility] Patient Type: [facility] Ancillary Taken: 06/02/2020 Received: 06/02/2020 Accessioned: 06/02/2020 [...] determined by the Surgical Pathology Department at [facility] as part of an ongoing director quality systems program and in compliance with federally mandated [...] determined by the Surgical Pathology Department of [facility]. It has not been cleared or approved by the U. S. Food and Drug Administration. Margarito Conde MD LAB CYTOLOGY ORDERABLES Final Result from Last 3 Months or Most Recently Relevant to Health Maintenance Insurance Advance Directives For more information, please contact: [phone] * Full Code (Latest Code Status on File) Date Activated Date Inactivated Comments 10/11/2018 3:28 PM 10/13/2018 4:57 PM * Full Code Date Activated Date Inactivated Comments 10/11/2018 9:51 AM 10/11/2018 3:28 PM Full CPR i n case of cardiopulmonary arrest Care Teams Social Worker Aide Relationship Specialty Start Date End Date Margarita Alcantar NP [facility] [place] [address] PCP - General Nurse Practitioner 03/02/24
--- OUTSIDE RECORDS SUMMARY | 2025-02-19 11:06 | XMS_ITS | Referral Summary ---
Author Organization [facility] Address [address] [place] [address] Care Team Providers Care Family Preservation Officer Name Role Phone Margarita Alcantar NP Primary Care Provider [phone] Encounters Date Type Department Care Team Description 01/28/2025 Telephone [facility] Minimally Invasive Surgery [address] [place] [address] Medical Office Building [address] [place] [address] Blas Garcia CMA 01/09/2025 12:50 PM CDT E-Visit [facility] Medical Group [address] [address] Oanh Marsh NP E-Visit for Urinary Tract Infection 01/09/2025 Patient Self-Triage [facility] HealthCare/ Physicians [address] [place] [phone] Mychart, Generic Provider 01/09/2025 Patient Self-Triage [facility] HealthCare/[facility] Physicians [address] [place] [phone] Mychart, Generic Provider 01/09/2025 Patient Self-Triage [facility] Physicians [address] [place] [phone] Mychart, Generic Provider 12/31/2024 Patient Self-Triage [facility] Physicians [address] [place] [phone] Mychart, Generic Provider from Last 3 Months [...] 1 capsule by mouth daily 3000 capsule 03/02/20 25 Active escitalopram (LEXAPRO) 20 mg [...] 10/30/2023 Assessment & Plan (10/30/2023 9:19 AM PHOTOENGRAVING APPRENTICE): Due to length of illness we will [...] 03/01/2022 Assessment & Plan (09/02/2023 12:08 PM PHOTOENGRAVING APPRENTICE): Finish Tobradex to the right ear Follow [...] 6-8 weeks if Right submandibular gland region lubricating machine tender, 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 Sialoadenitis 03/01/2022 Assessment & Plan (03/01/2022 11:11 AM CDT): 64 ounces of caffeine free and soda free fluid daily Right ear: Tobradex drops 7 drops twice daily for 10 days Doxycycline twice daily for 14 days Follow up in 6-8 weeks if Right submandibular gland region lubricating machine tender, 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 Follow up with Dentist as scheduled in March Otorrhea of both ears 04/24/2021 Assessment & Plan (12/31/2021 10:07 AM PHOTOENGRAVING APPRENTICE): Consider Doxycycline and Tobramycin if no improvement [...] Dentist Assessment & Plan (12/01/2020 4:20 PM PHOTOENGRAVING APPRENTICE): Cefdinir 600 mg daily with a meal for 14 days Pepcid 40 mg once daily at bedtime for at least one month Avoid ear cleaning techniques Avoid water to ears Laryngopharyngeal reflux (LPR) 12/01/2020 Assessment & Plan (12/01/2020 4:20 PM PHOTOENGRAVING APPRENTICE): Cefdinir 600 mg daily with a meal for 14 days Pepcid 40 mg once daily at bedtime for at least one month Avoid ear cleaning techniques Avoid water to ears Weight loss counseling, encounter for 07/10/2020 Assessment & Plan (09/04/2020 12:22 PM PHOTOENGRAVING APPRENTICE): Reviewed calorie restriction based on BMR as [...] w/r/t gut microbiome. Referred to ADA and [employer] [facility] websites for additional information on topics [...] 07/10/2020 Assessment & Plan (09/04/2020 12:24 PM PHOTOENGRAVING APPRENTICE): Obesity is improving. Diet interventions: as noted. [...] metformin. Assessment & Plan (09/04/2020 12:22 PM PHOTOENGRAVING APPRENTICE): Continue low-carb (<150 g/day), low-glycemic diet. Discussed [...] on file Legal Sex Female 3:55 AM PHOTOENGRAVING APPRENTICE Gender Identity Not on file Sexual Orientation [...] results best viewed via link to PDF [facility] Shalini Garcia Laboratory [place] [address] CYTOPATHOLOGY REPORT FINAL Patient Name: JAMES ROSA. Gender: F : 1990 (Age: 29) Address: [address] [place], [place] [id number] Hospital #: [id number] Service: Gynecology Location: [facility] Patient Type: [facility] Ancillary Taken: 06/02/2020 Received: 06/02/2020 Accessioned: [...] determined by the Surgical Pathology Department at [facility] as part of an ongoing lead quality control technician program and in compliance with federally mandated [...] determined by the Surgical Pathology Department of [facility]. It has not been cleared or approved by the U. S. Food and Drug Administration. Margarito Conde MD LAB CYTOLOGY ORDERABLES Final Result from Last 3 Months or Most Recently Relevant to Health Maintenance Insurance [id number] [place] [address] [facility] Advance Directives For more information, please contact: [phone] * Full Code (Latest Code Status on File) Date Activated Date Inactivated Comments 10/11/2018 3:28 PM 10/13/2018 4:57 PM * Full Code Date Activated Date Inactivated Comments 10/11/2018 9:51 AM 10/11/2018 3:28 PM Full CPR i n case of cardiopulmonary arrest Care Teams Family Preservation Officer Relationship Specialty Start Date End Date Margarita Alcantar NP [facility] [place] [address] PCP - General Nurse Practitioner 03/02/24
[2025-02-19 20:27] LABS: Hematocrit 40.8 % (37.0-47.0); Hemoglobin 12.6 g/dL (12.0-15.0); Mean Corpuscular HGB Conc 30.9 g/dl (32-36); Mean Corpuscular Hemoglobin 28.1 pg (26-34); Mean Corpuscular Volume 90.9 fl (80-100); Platelet Count Result 289 k/mm3 (150-375); Red Blood Count 4.49 M/mm3 (4.2-5.4); Red Cell Distribution Width 13.6 % (11.5-14.5); White Blood Count 9.9 K/mm3 (4.5-10.0)
[2025-02-19 20:49] LABS: Alanine Aminotransferase 25 U/L (6-35); Albumin Level 4.1 g/dL (3.5-5.1); Alkaline Phosphatase 72 U/L (38-126); Anion Gap 10 mmol/L (4-12); Aspartate Amino Transferase 53 U/L (14-36); Bilirubin,Total 0.4 mg/dL (0.2-1.3); Blood Urea Nitrogen 12 mg/dL (7-17); Carbon Dioxide 26 mmol/L (22-30); Chloride 102 mmol/L (98-107); Cholesterol 187 mg/dL (0-200); Estimated Glomerular Filt Rate > 60; Glucose 96 mg/dL (65-110); HDL Direct 43 mg/dL; Potassium 4.7 mmol/L (3.4-5.0); Sodium 138 mmol/L (137-145); Triglycerides 154 mg/dL (<150)
[2025-02-19 20:58] LABS: Hemoglobin A1C 5.3 % (<5.7)
[2025-02-19 21:02] LABS: LDL Cholesterol Direct 97 mg/dL
[2025-02-19 21:21] LABS: Cortisol Baseline 5.27 ug/dL
== END 2025-02-19 10:00 | disposition home or self-care (01) ==
LOC: ANHBWCLAB 10:00
PROVIDERS: PCP Nurse Practitioner Adult Health; Visit Provider Nurse Practitioner Adult Health
DX: E66.01 Morbid (severe) obesity due to excess calories (principal); Z13.9 Encounter for screening, unspecified
CPT/HCPCS: 36415; 80053; 80061; 82533; 83036; 84443; 85027

== ENCOUNTER 2025-08-02 09:39 | Emergency (ER) | payer OTHER, SELFPAY ==
[2025-08-02 09:51] VITALS: BP 129/85; PULSE 91; RESP 20; TEMP 36.8; O2SAT 99
[2025-08-02 10:16] LABS: EDCOVIDSCREEN Negative (Negative); EDINFLUASCREEN Negative (Negative); EDINFLUBSCREEN Negative (Negative); EDSTREPNEGPOS1 Negative (Negative)
--- NOTE | 2025-08-02 10:19 | ED.URI ---
HPI - URI/Sore Throat General Chief Complaint: Upper Respiratory Infection Stated Complaint: throat/ears Source: patient and RN notes reviewed Mode of arrival: ambulatory Limitations: no limitations History of Present Illness HPI Narrative: 35-year-old female presents Express Care complaining of cough, congestion, sore throat, bilateral ear pain for 2 days. Patient denies any other upper respiratory symptoms. Patient denies any chest pain, shortness of breath, nausea, vomiting, diarrhea, fevers, body aches, chills, or any other symptoms. Patient has not done anything [id number] to help with symptoms. Related Data Allergies Allergy/AdvReac Type Severity Reaction Status Date / Time azithromycin Allergy Unknown RASH, Verified 08/02/25 09:47 DIARRHEA Review of Systems Review of Systems: CONSTITUTIONAL: Denies fever, chills, body aches, or sweats. EYES: Denies visual changes, redness, or discharge. ENT: Positive for, congestion, otalgia, sore throat. Negative for rhinorrhea CARDIOVASCULAR: Denies chest pain, palpitations, or edema. RESPIRATORY: Positive for cough. Negative for dyspnea or wheezing. GASTROINTESTINAL: Denies abdominal pain, nausea, vomiting, or diarrhea. GENITOURINARY: Denies dysuria or hematuria. SKIN: Denies rash or itching. MUSCULOSKELETAL: Denies back pain, joint pain, or myalgia. NEUROLOGIC: Denies headache, numbness, or weakness. PSYCHIATRIC: Denies anxiety or depression. All other systems reviewed are negative, except as documented in HPI. [facility] Past Medical History Medical History On retirement drug therapy Morbid obesity Ear infection Anxiety PCOS (polycystic ovarian syndrome) Surgical History Surgical History History of placement of ear tubes Previous section x2 Family History Family History Mother Anxiety Depression Cancer Grandparent Diabetes mellitus Anxiety Depression Cancer Social History Social History Smoking status: Never smoker Alcohol intake: never Substance use: never Lack of Transportation: No Lack of Food: Never True Current Housing: I Have Housing Concerned About Future Housing: No Difficulty Paying Gas/Electric Bills: No Difficulty Paying for Meds: No Currently Unemployed: No Education: High School Diploma/GED Difficulty w/ Childcare or Family Care: No Spiritual care concerns: No Comments At the time of my signature, I reviewed and agree with the nursing past medical, surgical, social, and family history. There is no relevant family history pertinent to the patient complaint. Exam Narrative: GENERAL: This is a well-nourished, well-developed adult, in no apparent distress. They are non ill-appearing, nontoxic appearing. HEAD: normocephalic, atraumatic. EYES: Sclera clear/white. Vision is grossly intact. Conjunctiva normal bilaterally. Extraocular movements intact. EARS: External ears normal, auditory canals clear and without drainage, left TM without erythema or perforation. Right TM erythematous, non bulging, with suppuration. Right TM intact. Hearing grossly intact. NOSE: External nose normal with no obvious nasal discharge, nasal turbinates erythematous, no rhinorrhea. THROAT: Mucous membranes moist, posterior pharynx erythematous without exudate. Uvula is midline. Postnasal drip present. NECK: Neck supple, non-tender without lymphadenopathy, masses or thyromegaly. CARDIOVASCULAR: Regular rate and rhythm without murmurs, gallops, or rubs. RESPIRATORY: Clear to auscultation. Breath sounds equal bilaterally. No wheezes, rales, or rhonchi. SKIN: warm, Dry, intact with no suspicious lesions or rash, good texture and turgor. NEURO: awake, alert, and oriented to person, place and time. There were no obvious focal neurologic abnormalities. EXTREMITIES: No joint tenderness, effusion, or edema noted. BACK: Nontender without deformity. Course Course Emergency Course: Portions of this record may have been created with voice recognition software Level of Care: Express Care Visit Vital Signs Vital signs: Vital Signs Temperature 98.2 F 08/02/25 09:51 Pulse Rate 91 08/02/25 09:51 Respiratory Rate 20 08/02/25 09:51 Blood Pressure 129/85 08/02/25 09:51 Pulse Oximetry 99 08/02/25 09:51 Oxygen Delivery Room Air 08/02/25 09:51 Temperature 98.2 F 08/02/25 09:51 Pulse Rate 91 08/02/25 09:51 Respiratory Rate 20 08/02/25 09:51 Blood Pressure 129/85 08/02/25 09:51 Pulse Oximetry 99 08/02/25 09:51 Oxygen Delivery Room Air 08/02/25 09:51 MDM - URI/Sore Throat MDM Narrative Medical decision making narrative: Rapid COVID, flu, strep were negative. A throat culture is pending. Appears patient has a right-sided otitis media. Likely patient also has underlying upper respiratory viral infection. Will prescribe amoxicillin for ear infection. Discussed physical exam findings. Advised supportive measures and signs/symptoms to go to the ER. Pt is appropriate for outpt treatment and f/u. Differential Diagnosis Differential diagnosis: Likely upper respiratory infection, otitis media, sinusitis, viral infection and pharyngitis Lab Data Attestation: I reviewed the patient's lab results. Labs: Lab Results 08/02/25 Range/Units 10:14 POC Influenza A Ag Negative (Negative) POC Influenza B Ag Negative (Negative) POC SARS CoV-2 Ag Negative (Negative) POC Grp A Strep Screen Negative (Negative) Discharge Plan Discharge Clinical Impression: Upper respiratory infection Qualifiers: URI type: unspecified viral URI Qualified Code(s): J06.9 - Acute upper respiratory infection, unspecified Otitis media Qualifiers: Otitis media type: suppurative Chronicity: acute Laterality: right Recurrence: non-recurrent Spontaneous tympanic membrane rupture: without spontaneous rupture Qualified Code(s): H66.001 - Acute suppurative otitis media without spontaneous rupture of ear drum, right ear Patient Disposition: Home Condition: Stable Instructions: Antibiotic Form, Ear Infection (ED) Additional Instructions: Your rapid COVID, flu, rapid strep swab was negative today at [facility]. You will be notified in a few days if the culture comes back positive for strep. Take antibiotics as directed. Recommend antihistamine such as Benadryl, Zyrtec or Shannon for sinus congestion, follow instructions on the bottle. Flonase nasal spray, to spray in each nostril once daily until symptoms improve Symptomatic treatment includes: rest, fluids, and increase humidity of the air at home. Tylenol ibuprofen as needed for pain or fevers. Follow the instruction on the bottle. Please schedule a follow-up visit with your personal physician for further evaluation and treatment within 3-5days. If your symptoms persist, change or worsen significantly, go to the emergency department for further evaluation. Patient Language: Jamaican Prescriptions: New amoxicillin 875 mg tablet 875 mg PO Q12H 7 Days Qty: 14 0RF No Action ferrous sulfate 325 mg (65 mg iron) tablet 325 mg PO DAILY Qty: 90 1RF cholecalciferol (vitamin D3) 1,250 mcg (50,000 unit) capsule 1,250 mcg PO WEEKLY Qty: 12 1RF pantoprazole [Protonix] 40 mg tablet,delayed release (DR/EC) 40 mg PO QAM Qty: 90 0RF sertraline 50 mg tablet 50 mg PO DAILY Qty: 30 1RF Follow-up/Referrals: Margarita Alcantar APRN [Primary Care Provider, [facility]] Time of Disposition: 10:18
== END 2025-08-02 10:21 | disposition home or self-care (01) ==
PROVIDERS: PCP Nurse Practitioner Adult Health
DX: J06.9 Acute upper respiratory infection, unspecified (principal); H66.001 Acute suppurative otitis media without spontaneous rupture of ear drum, right ear; Z20.822 Contact with and (suspected) exposure to COVID-19; E28.2 Polycystic ovarian syndrome; F41.9 Anxiety disorder, unspecified; E66.01 Morbid (severe) obesity due to excess calories; Z68.44 Body mass index [BMI] 60.0-69.9, adult
CPT/HCPCS: 87081; 87426; 87804; 87880; 99213; G0463